=== PATIENT | male | born 1975 | race Two or more races ===

== ENCOUNTER → 2017-07-18 09:38 | Outpatient (CLI) | payer MEDICARE, SELFPAY ==
[2017-07-18 10:22] LABS: Basophils # 0.1 K/mm3 (0-0.2); Basophils % 0.6 % (0.1-2.0); Eosinophils # 0.2 K/mm3 (0.0-0.4); Eosinophils % 1.2 % (0.1-12.0); Hematocrit 44.8 % (42.0-52.0); Hemoglobin 14.4 g/dL (14.1-18.0); Lymphocytes # 2.1 K/mm3 (0.7-4.5); Lymphocytes % 16.9 K/mm3 (10-50); Mean Corpuscular HGB Conc 32.3 g/dL (31.8-35.4); Mean Corpuscular Hemoglobin 32.2 pg (27.0-31.2); Mean Corpuscular Volume 99.9 fl (80-94); Mean Platelet Volume 9.2 fl (7.4-10.4); Monocytes # 0.5 K/mm3 (0.1-1.0); Monocytes % 3.9 % (1.7-9.3); Neutrophils # 9.6 K/mm3 (1.8-7.8); Neutrophils % 77.4 % (37.0-80.0); Platelet Count 205 K/mm3 (142-424); Red Blood Count 4.48 M/mm3 (4.60-6.20); Red Cell Distribution Width 12.4 % (11.5-17.5); White Blood Count 12.4 K/mm3 (4.8-10.8)
[2017-07-18 10:39] LABS: Alanine Aminotransferase 54 U/L (12-78); Albumin Level 3.5 gm/dL (3.4-5.0); Albumin/Globulin Ratio 0.6 (1.1-1.8); Alkaline Phosphatase 197 U/L (46-116); Bilirubin,Total 0.4 mg/dL (0.2-1.0); Blood Urea Nitrogen 17 mg/dL (7-18); Carbon Dioxide 28 mmol/L (21.0-32.0); Chloride 93 mmol/L (98-107); Creatinine,Serum 1.59 mg/dL (0.70-1.30); Estimated Glomerular Filt Rate 48 ml/min (>60); Free Thyroxine Index 3.2 ug/dL (5.93-13.13); GFR (African American) 58 ML/MIN (>60); Globulin 5.4 gm/dl (1.3-3.2); Sodium 129 mmol/L (136-145); T4 (Thyroxine) 9.5 ug/dl (4.7-13.3); Thyroid Stimulating Hormone 1.82 uIU/ml (0.358-3.740); Total Protein,Serum 8.9 gm/dL (6.4-8.2); Triiodothryronine (T3) Uptake 34 % (31-39)
[2017-07-18 11:08] LABS: Glucose 581 mg/dL (74-106)
[2017-07-18 11:09] LABS: Aspartate Amino Transferase 25 U/L (15-37)
[2017-07-20 15:53] LABS: Testosterone,Total 123 ng/dL (264-916); Vitamin B12 661 pg/mL (232-1245); Vitamin D 25 Hydroxy 10.1 ng/mL (30.0-100.0)
== END ==
PROVIDERS: Visit Provider Internal Medicine Adolescent Medicine
DX: J44.9 Chronic obstructive pulmonary disease, unspecified (principal); R53.83 Other fatigue
CPT/HCPCS: 36415; 80053; 82607; 82652; 84403; 84436; 84443; 84479; 85025

== ENCOUNTER → 2017-08-17 10:15 | Outpatient (CLI) | payer MEDICARE, SELFPAY ==
--- NOTE | 2017-08-17 10:17 | XR_ITS ---
XR foot wt bearing LT 3V HISTORY: ITS.REASON: diabetic foot ulcer ORDERING PHYSICIAN: Elaine Mcbride DPM PATIENT AGE: 41 years FINDINGS: No fracture or dislocation. No lytic or blastic change. There is normal mineralization.. The joint spaces are well-preserved. No significant degenerative/arthritic changes. No erosive changes evident. IMPRESSION: Negative, no acute finding
--- NOTE | 2017-08-17 10:17 | XR_ITS ---
XR foot wt bearing RT 3V HISTORY: Diabetic foot ulcer on the plantar aspect of the heel ITS.REASON: diabetic foot ulcer ORDERING PHYSICIAN: Elaine Mcbride DPM PATIENT AGE: 41 years COMPARISON: 09/28/2012 FINDINGS: There is an old fracture of the distal phalanx of great toe. No lytic process apparent. No soft tissue gas or radiopaque foreign body. There is longitudinal calcification along the dorsal distal aspect tibia and could be due to an old fracture. IMPRESSION: No acute finding. No definite evidence of acute osteomyelitis
== END ==
PROVIDERS: PCP Nurse Practitioner Family; Visit Provider Podiatrist
DX: E11.621 Type 2 diabetes mellitus with foot ulcer (principal); L97.509 Non-pressure chronic ulcer of other part of unspecified foot with unspecified severity
CPT/HCPCS: 73630

== ENCOUNTER → 2017-08-18 09:19 | Outpatient (CLI) | payer MEDICARE, SELFPAY ==
[2017-08-18 10:20] LABS: Basophils % 0.5 % (0.1-2.0); Eosinophils # 0.3 K/mm3 (0.0-0.4); Eosinophils % 3.6 % (0.1-12.0); Hematocrit 36.2 % (42.0-52.0); Hemoglobin 11.3 g/dL (14.1-18.0); Lymphocytes # 1.9 K/mm3 (0.7-4.5); Lymphocytes % 23.6 K/mm3 (10-50); Mean Corpuscular HGB Conc 31.3 g/dL (31.8-35.4); Mean Corpuscular Volume 99.2 fl (80-94); Mean Platelet Volume 7.8 fl (7.4-10.4); Monocytes # 0.5 K/mm3 (0.1-1.0); Monocytes % 5.5 % (1.7-9.3); Neutrophils # 5.4 K/mm3 (1.8-7.8); Neutrophils % 66.8 % (37.0-80.0); Platelet Count 216 K/mm3 (142-424); Red Blood Count 3.65 M/mm3 (4.60-6.20); Red Cell Distribution Width 14.1 % (11.5-17.5); White Blood Count 8.1 K/mm3 (4.8-10.8)
[2017-08-18 11:40] LABS: Hemoglobin A1C 9.9 % (0.0-7.0)
[2017-08-18 12:19] LABS: Alanine Aminotransferase 64 U/L (12-78); Albumin Level 2.9 gm/dL (3.4-5.0); Albumin/Globulin Ratio 0.7 (1.1-1.8); Alkaline Phosphatase 127 U/L (46-116); Anion Gap 15.9 mEq/L (5-15); Bilirubin,Total 0.2 mg/dL (0.2-1.0); Blood Urea Nitrogen 6 mg/dL (7-18); Calcium 9.2 mg/dL (8.5-10.1); Carbon Dioxide 23 mmol/L (21.0-32.0); Chloride 108 mmol/L (98-107); Chol/HDL Ratio 5.5 (1-3.5); Cholesterol 199 mg/dL (140-200); Creatinine,Serum 1.02 mg/dL (0.70-1.30); Estimated Glomerular Filt Rate 80 ml/min (>60); GFR (African American) 96 ML/MIN (>60); Globulin 4.1 gm/dl (1.3-3.2); Glucose 113 mg/dL (74-106); HDL Cholesterol 36 mg/dL (27-67); LDL Cholesterol 123 mg/dL (0-130); Sodium 143 mmol/L (136-145); T4 (Thyroxine) 7.1 ug/dl (4.7-13.3); Thyroid Stimulating Hormone 0.72 uIU/ml (0.358-3.740); Triglycerides 200 mg/dL (30-200); VLDL Cholesterol 40 mg/dL (0-40)
[2017-08-18 12:24] LABS: Aspartate Amino Transferase 43 U/L (15-37); Potassium 3.9 mmoL/L (3.5-5.1)
[2017-08-20 06:29] LABS: Microalbumin, Urine 3.6 ug/mL (Not Estab.); Vitamin D 25 Hydroxy 11.7 ng/mL (30.0-100.0)
== END ==
PROVIDERS: Visit Provider Nurse Practitioner Family
DX: L89.610 Pressure ulcer of right heel, unstageable (principal); E11.9 Type 2 diabetes mellitus without complications; R53.1 Weakness; R53.83 Other fatigue
CPT/HCPCS: 36415; 80053; 80061; 82043; 82652; 83036; 84436; 84443; 85025

== ENCOUNTER → 2017-08-29 11:41 | Outpatient (REF) | payer MEDICARE, SELFPAY ==
[2017-08-29 18:24] LABS: Amphetamine/Metha Screen,Urine Negative ng/mL (<1000); Barbiturates Screen,Urine Negative ng/mL (<200); Benzodiazepines Screen,Urine Negative ng/mL (200); Cannabinoid Screen,Urine Positive ng/mL (<50); Cocaine Screen,Urine Negative ng/g (<300); Methadone Screen,Urine Negative ng/mL (<300); Opiate Screen,Urine Negative ng/mL (<300); Phencyclidine Screen,Urine Negative ng/mL (<25)
== END ==
LOC: LAB 11:41
PROVIDERS: Visit Provider Nurse Practitioner Family
DX: R41.82 Altered mental status, unspecified (principal)
CPT/HCPCS: 80305; 87070; 87077; 87186; 87205

== ENCOUNTER → 2017-08-29 15:13 | Outpatient (CLI) | payer MEDICARE, SELFPAY ==
--- NOTE | 2017-08-29 15:15 | US_ITS ---
US Arterial Ankle Brachial Ind History: ITS.REASON: Skin Changes , leg pain, claudication with rest pain, bilateral heel ulcers ORDERING PHYSICIAN: Elaine Mcbride DPM PATIENT AGE: 41 years TECHNIQUE: Segmental pressures obtained of both right and left leg. These are compared to brachial blood pressure to yield index at each level sampled including summary BLAKE. The data sheets from the procedure are available in PACS FINDINGS Rest study only performed today No prior studies available for comparison. Blood pressures reported are in millimeters mercury. RIGHT LEG BLAKE = 1.1. RIGHT LEG TBI=1.4 Brachial BP: 113 Thigh BP: 127 Calf BP: 134 Ankle PT: 133 Ankle DP : 121 Digit =173 LEFT LEG BLAKE = 1.1 LEFT LEG TBI= 0.9 Brachial BPD: 121 Thigh BP: 122 Calf BP: 129 Ankle PT:130 Ankle DP: 128 Digit = 110 Pulses and waveforms: Normal IMPRESSION: The ABIs and TBI's as reported above are within normal limits. Waveforms and pulses are also unremarkable.
== END ==
PROVIDERS: Family Provider Internal Medicine Adolescent Medicine; PCP Nurse Practitioner Family; Visit Provider Podiatrist
DX: R23.9 Unspecified skin changes (principal); R09.89 Other specified symptoms and signs involving the circulatory and respiratory systems; R41.82 Altered mental status, unspecified; H53.8 Other visual disturbances
CPT/HCPCS: 80305; 87070; 87077; 87186; 87205; 93922

== ENCOUNTER → 2017-09-06 15:32 | Outpatient (REF) | payer MEDICARE, SELFPAY ==
[2017-09-06 18:45] LABS: Amphetamine/Metha Screen,Urine Negative ng/mL (<1000); Barbiturates Screen,Urine Negative ng/mL (<200); Benzodiazepines Screen,Urine Negative ng/mL (200); Cannabinoid Screen,Urine Positive ng/mL (<50); Cocaine Screen,Urine Negative ng/g (<300); Methadone Screen,Urine Negative ng/mL (<300); Opiate Screen,Urine Negative ng/mL (<300); Phencyclidine Screen,Urine Negative ng/mL (<25)
== END ==
LOC: LAB 15:32
PROVIDERS: Visit Provider Nurse Practitioner Family
DX: R41.82 Altered mental status, unspecified (principal)
CPT/HCPCS: 80305

== ENCOUNTER → 2017-09-11 14:09 | Outpatient (CLI) | payer MEDICARE, SELFPAY ==
--- NOTE | 2017-09-11 14:10 | CT_ITS ---
CT head/brain wo con HISTORY: Headaches with blurred vision ITS.REASON: blurry vison ORDERING PHYSICIAN: Cash Gerber MD PATIENT AGE: 41 years COMPARISON: 07/24/2017 TECHNIQUE: Axial images obtained without contrast. Brain and bone windows reviewed. All CT scans at the facility use one or more dose reduction, viz: automated exposure control; ma/kV adjustment per patient size (including targeted exams where dose is matched to indication; i.e. head); or iterative reconstruction technique. FINDINGS: No midline shift, mass effect, intracranial hemorrhage, hydrocephalus, or extra-axial fluid collection is evident. The calvarium has an unremarkable appearance. There is opacification in the right mastoid sinus and right middle ear. There is an air-fluid level in right mastoid sinus Consider mastoid/temporal bone CT for further evaluation. IMPRESSION: 1. No acute intracranial findings. 2. Opacification of the right mastoid sinus with an air-fluid level and right middle ear opacification consistent with inflammatory changes. Dedicated CT of the mastoids/temporal bone may be of further value to exclude cholesteatoma development.
== END ==
PROVIDERS: Family Provider Internal Medicine Adolescent Medicine; PCP Nurse Practitioner Family; Visit Provider Emergency Medicine
DX: H53.8 Other visual disturbances (principal)
CPT/HCPCS: 70450

== ENCOUNTER → 2017-09-29 09:59 | Outpatient (POV) | payer MEDICARE, SELFPAY | PROVIDERS: Family Provider Internal Medicine Adolescent Medicine; PCP Nurse Practitioner Family; Visit Provider Podiatrist | DX: Z00.00 Encounter for general adult medical examination without abnormal findings (principal) ==

== ENCOUNTER → 2017-10-30 09:03 | Outpatient (POV) | payer MEDICARE, SELFPAY | PROVIDERS: Family Provider Internal Medicine Adolescent Medicine; PCP Nurse Practitioner Family; Visit Provider Specialist | DX: R20.0 Anesthesia of skin (principal); R20.2 Paresthesia of skin ==

== ENCOUNTER → 2017-11-02 14:13 | Outpatient (CLI) | payer MEDICARE, SELFPAY ==
--- NOTE | 2017-11-02 14:16 | CT_ITS ---
CT mastoid W/O Ordering Physician: Cristian Baeza MD Patient Age: 41 years: Male HISTORY: ITS.REASON: radiology recommendation re: abnm previous scan HISTORY of headaches TECHNIQUE: Axial CT scanning performed through the middle air with sagittal and coronal reconstructions. COMPARISON :CT head 09/11/2017. FINDINGS IACs appear symmetrical. Within normal limits. CP angles clear. Left mastoid air cells are well-developed and clear. Right mastoid.. Complete Opacification of the right mastoid air cells fluid-filled mastoid antrum. Fluid extending to the middle air. Diffuse fluid-filled middle ear.. There is fluid and density throughout the right middle year which now completely surrounding the ossicles.Fluid/opacification extending towards the eustachian tube as well On prior September [address] there is some scant air at the middle ear but it is less evident today..., .. Generous jugular foramen on right with the bone otherwise seems to be intact.. It seems that the Ossicles detailed less then optimal with current technique... Left mastoid air cells well-developed and clear. The left middle ear clear. Old medial displaced fracture lamina papyracea/medial wall left orbit . Mild mucosal thickening at ethmoid air cells. 4.5 mm x 5 mm small osteoma right frontal sinus at its junction with ethmoid air cells Moderate engorgement nasal turbinates. Deviation nasal septum convex to left with 3 mm septal spur to the left Cervical spondylosis degenerative disc changes C4/5. Diffuse posterior endplate osteophytes indenting anterior thecal sac at this level. The foraminal encroachment right greater than left. IMPRESSION: -------- 1. 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 Complete opacification right mastoid air cells with with confluence opacification extending to and filling middle ear. Other observations: 2. Old fracture medial wall left orbit 3. Incidental. 5 mm osteoma right frontal sinus at junction with ethmoid air cells.... Scant mucosal thickening anterior ethmoid air cells. 4. Deviation nasal septum with septal spur the left. & Engorgement nasal turbinates. 5.. Degenerative disc narrowing & Cervical spondylosis C4/5 noted in view of headaches. With Bilateral foraminal encroachment. Mild spinal stenosis.
== END ==
PROVIDERS: Family Provider Internal Medicine Adolescent Medicine; PCP Nurse Practitioner Family; Visit Provider Otolaryngology
DX: R51 Headache (principal); H65.91 Unspecified nonsuppurative otitis media, right ear; H70.11 Chronic mastoiditis, right ear; Z86.39 Personal history of other endocrine, nutritional and metabolic disease
CPT/HCPCS: 70486

== ENCOUNTER → 2017-11-23 13:25 | Outpatient (REF) | payer MEDICARE, SELFPAY ==
[2017-11-23 20:44] LABS: Amphetamine/Metha Screen,Urine Negative ng/mL (<1000); Barbiturates Screen,Urine Negative ng/mL (<200); Benzodiazepines Screen,Urine Negative ng/mL (<200); Cannabinoid Screen,Urine Positive ng/mL (<50); Cocaine Screen,Urine Negative ng/mL (<300); Methadone Screen,Urine Negative ng/mL (<300); Opiate Screen,Urine Negative ng/mL (<300); Phencyclidine Screen,Urine Negative ng/mL (<25)
== END ==
LOC: LAB 13:25
PROVIDERS: Visit Provider Nurse Practitioner Family
DX: Z79.899 Other long term (current) drug therapy (principal)
CPT/HCPCS: 80305

== ENCOUNTER → 2018-03-10 12:23 | Outpatient (CLI) | payer MEDICARE, SELFPAY ==
[2018-03-10 13:34] LABS: Basophils # 0.1 K/mm3 (0-0.2); Basophils % 0.7 % (0.1-2.0); Eosinophils # 0.2 K/mm3 (0.0-0.4); Eosinophils % 2.4 % (0.1-12.0); Hemoglobin 14.9 g/dL (14.1-18.0); Lymphocytes # 2.4 K/mm3 (0.7-4.5); Lymphocytes % 24.3 % (10-50); Mean Corpuscular HGB Conc 33.1 g/dL (31.8-35.4); Mean Corpuscular Hemoglobin 30.5 pg (27.0-31.2); Mean Corpuscular Volume 92.2 fl (80-94); Mean Platelet Volume 8.1 fl (7.4-10.4); Monocytes # 0.5 K/mm3 (0.1-1.0); Monocytes % 4.7 % (1.7-9.3); Neutrophils # 6.6 K/mm3 (1.8-7.8); Platelet Count 174 K/mm3 (142-424); Red Blood Count 4.88 M/mm3 (4.60-6.20); Red Cell Distribution Width 14.3 % (11.5-17.5); White Blood Count 9.7 K/mm3 (4.8-10.8)
[2018-03-10 14:19] LABS: Alanine Aminotransferase 29 U/L (12-78); Albumin Level 3.4 gm/dL (3.4-5.0); Albumin/Globulin Ratio 0.8 (1.1-1.8); Alkaline Phosphatase 129 U/L (46-116); Anion Gap 14.8 mEq/L (5-15); Bilirubin,Total 0.2 mg/dL (0.2-1.0); Blood Urea Nitrogen 14 mg/dL (7-18); Carbon Dioxide 25 mmol/L (21.0-32.0); Chloride 107 mmol/L (98-107); Chol/HDL Ratio 4.8 (1-3.5); Cholesterol 159 mg/dL (140-200); Creatinine,Serum 1.25 mg/dL (0.70-1.30); Estimated Glomerular Filt Rate 63 ml/min (>60); GFR (African American) 76 ML/MIN (>60); Globulin 4.3 gm/dl (1.3-3.2); Glucose 99 mg/dL (74-106); HDL Cholesterol 33 mg/dL (27-67); LDL Cholesterol 63 mg/dL (0-130); Sodium 142 mmol/L (136-145); T4 (Thyroxine) 6.6 ug/dl (4.7-13.3); Thyroid Stimulating Hormone 0.62 uIU/ml (0.358-3.740); Total Protein,Serum 7.7 gm/dL (6.4-8.2); Triglycerides 314 mg/dL (30-200); VLDL Cholesterol 63 mg/dL (0-40)
[2018-03-10 14:27] LABS: Aspartate Amino Transferase 19 U/L (15-37); Potassium 4.8 mmoL/L (3.5-5.1)
[2018-03-12 10:35] LABS: Vitamin D 25 Hydroxy 15.9 ng/mL (30.0-100.0)
[2018-03-14 06:26] LABS: Microalbumin, Urine <3.0 ug/mL (Not Estab.)
== END ==
PROVIDERS: Visit Provider Nurse Practitioner Family
DX: R41.82 Altered mental status, unspecified (principal); G62.9 Polyneuropathy, unspecified; E11.9 Type 2 diabetes mellitus without complications
CPT/HCPCS: 36415; 80053; 80061; 82043; 82652; 83036; 84436; 84443; 85025

== ENCOUNTER → 2018-07-30 12:10 | Outpatient (CLI) | payer MEDICARE, SELFPAY ==
--- NOTE | 2018-07-30 12:17 | XR_ITS ---
XR foot wt bearing LT 3V HISTORY: ITS.REASON: pain ORDERING PHYSICIAN: Elaine Mcbride DPM PATIENT AGE: 42 years COMPARISON: None FINDINGS: No fracture or dislocation. No lytic or blastic change. There is normal mineralization.. The joint spaces are well-preserved. No significant degenerative/arthritic changes. No erosive changes evident. IMPRESSION: Negative, no acute finding
--- NOTE | 2018-07-30 12:17 | XR_ITS ---
XR foot wt bearing RT 3V HISTORY: ITS.REASON: pain ORDERING PHYSICIAN: Elaine Mcbride DPM PATIENT AGE: 42 years COMPARISON: None FINDINGS: No fracture or dislocation. No lytic or blastic change. There is normal mineralization.. The joint spaces are well-preserved. No significant degenerative/arthritic changes. No erosive changes evident. Minimal exostosis noted along the dorsal and distal aspect of the tibia with mild spurring along the anterior and distal aspect of the tibia. IMPRESSION: Mild degenerative changes of the ankle, unremarkable foot
== END ==
PROVIDERS: PCP Nurse Practitioner Family; Visit Provider Podiatrist
DX: M79.671 Pain in right foot (principal); M79.672 Pain in left foot
CPT/HCPCS: 73630

== ENCOUNTER → 2018-08-30 13:31 | Outpatient (CLI) | payer MEDICARE, SELFPAY ==
[2018-08-30 14:37] LABS: Basophils # 0.1 K/mm3 (0-0.2); Basophils % 0.7 % (0.1-2.0); Eosinophils # 0.2 K/mm3 (0.0-0.4); Hematocrit 49.7 % (42.0-52.0); Lymphocytes # 2.4 K/mm3 (0.7-4.5); Mean Corpuscular HGB Conc 34.2 g/dL (31.8-35.4); Mean Corpuscular Hemoglobin 31.1 pg (27.0-31.2); Mean Corpuscular Volume 91.2 fl (80-94); Mean Platelet Volume 9.9 fl (7.4-10.4); Monocytes # 0.5 K/mm3 (0.1-1.0); Monocytes % 4.1 % (1.7-9.3); Neutrophils # 7.7 K/mm3 (1.8-7.8); Neutrophils % 71.1 % (37.0-80.0); Platelet Count 182 K/mm3 (142-424); Red Blood Count 5.46 M/mm3 (4.60-6.20); Red Cell Distribution Width 13.6 % (11.5-17.5); White Blood Count 10.9 K/mm3 (4.8-10.8)
[2018-08-30 16:58] LABS: Alanine Aminotransferase 40 U/L (12-78); Albumin Level 4.1 gm/dL (3.4-5.0); Albumin/Globulin Ratio 1.1 (1.1-1.8); Alkaline Phosphatase 169 U/L (46-116); Anion Gap 18.9 mEq/L (5-15); Aspartate Amino Transferase 21 U/L (15-37); Bilirubin,Total 0.5 mg/dL (0.2-1.0); Blood Urea Nitrogen 16 mg/dL (7-18); Calcium 9.3 mg/dL (8.5-10.1); Carbon Dioxide 22 mmol/L (21.0-32.0); Chloride 106 mmol/L (98-107); Chol/HDL Ratio 4.4 (1-3.5); Cholesterol 155 mg/dL (140-200); Creatinine,Serum 1.25 mg/dL (0.70-1.30); Estimated Glomerular Filt Rate 63 ml/min (>60); Free Thyroxine Index 2.6 ug/dL (5.93-13.13); GFR (African American) 76 ML/MIN (>60); Globulin 3.7 gm/dl (1.3-3.2); Glucose 106 mg/dL (74-106); HDL Cholesterol 35 mg/dL (27-67); LDL Cholesterol 80 mg/dL (0-130); Phosphorous 3.1 mg/dL (2.4-4.9); Potassium 4.9 mmoL/L (3.5-5.1); Sodium 142 mmol/L (136-145); T4 (Thyroxine) 8.7 ug/dl (4.7-13.3); Thyroid Stimulating Hormone 1.39 uIU/ml (0.358-3.740); Total Protein,Serum 7.8 gm/dL (6.4-8.2); Triglycerides 200 mg/dL (30-200); Triiodothryronine (T3) Uptake 30 % (31-39); VLDL Cholesterol 40 mg/dL (0-40)
[2018-08-30 18:09] LABS: Amphetamine/Metha Screen,Urine Negative ng/mL (<1000); Barbiturates Screen,Urine Negative ng/mL (<200); Benzodiazepines Screen,Urine Negative ng/mL (<200); Cannabinoid Screen,Urine Positive ng/mL (<50); Cocaine Screen,Urine Negative ng/mL (<300); Methadone Screen,Urine Negative ng/mL (<300); Opiate Screen,Urine Negative ng/mL (<300); Phencyclidine Screen,Urine Negative ng/mL (<25)
[2018-09-02 17:22] LABS: Thyroid Peroxidase Antibodies 13 IU/mL (0-34); Vitamin D 25 Hydroxy 32.8 ng/mL (30.0-100.0)
[2018-09-02 17:23] LABS: Microalbumin, Urine 29.8 ug/mL (Not Estab.)
== END ==
PROVIDERS: Visit Provider Nurse Practitioner Family
DX: E11.9 Type 2 diabetes mellitus without complications (principal); R10.9 Unspecified abdominal pain; R11.0 Nausea; R53.83 Other fatigue; E78.5 Hyperlipidemia, unspecified; R68.89 Other general symptoms and signs; E66.9 Obesity, unspecified; Z79.899 Other long term (current) drug therapy; Z79.4 Long term (current) use of insulin
CPT/HCPCS: 80053; 80061; 80069; 80305; 82043; 82652; 83036; 84436; 84443; 84479; 85025; 86376

== ENCOUNTER → 2018-12-12 17:46 | Outpatient (CLI) | payer MEDICARE, SELFPAY ==
[2018-12-12 20:00] LABS: Amphetamine/Metha Screen,Urine Negative ng/mL (<1000); Barbiturates Screen,Urine Negative ng/mL (<200); Benzodiazepines Screen,Urine Negative ng/mL (<200); Cannabinoid Screen,Urine Positive ng/mL (<50); Cocaine Screen,Urine Negative ng/mL (<300); Methadone Screen,Urine Negative ng/mL (<300); Opiate Screen,Urine Negative ng/mL (<300); Phencyclidine Screen,Urine Negative ng/mL (<25)
== END ==
PROVIDERS: Visit Provider Nurse Practitioner Family
DX: R41.82 Altered mental status, unspecified (principal)
CPT/HCPCS: 80305

== ENCOUNTER → 2019-03-14 13:13 | Outpatient (CLI) | payer MEDICARE, SELFPAY ==
[2019-03-14 14:17] LABS: Hematocrit 48.6 % (42.0-52.0); Hemoglobin 16.2 g/dL (14.1-18.0); Mean Corpuscular HGB Conc 33.2 g/dL (31.8-35.4); Mean Corpuscular Hemoglobin 31.9 pg (27.0-31.2); Mean Corpuscular Volume 95.9 fl (80-94); Red Blood Count 5.07 M/mm3 (4.60-6.20); White Blood Count 10.5 K/mm3 (4.8-10.8)
[2019-03-14 14:18] LABS: Basophils # 0.1 K/mm3 (0-0.2); Basophils % 0.7 % (0.1-2.0); Eosinophils # 0.4 K/mm3 (0.0-0.4); Eosinophils % 3.5 % (0.1-12.0); Lymphocytes # 2.3 K/mm3 (0.7-4.5); Mean Platelet Volume 9.3 fl (7.4-10.4); Monocytes # 0.5 K/mm3 (0.1-1.0); Monocytes % 4.4 % (1.7-9.3); Neutrophils # 7.3 K/mm3 (1.8-7.8); Neutrophils % 69.5 % (37.0-80.0); Platelet Count 181 K/mm3 (142-424); Red Cell Distribution Width 13.1 % (11.5-17.5)
[2019-03-14 16:07] LABS: Alanine Aminotransferase 30 U/L (12-78); Albumin Level 3.6 gm/dL (3.4-5.0); Albumin/Globulin Ratio 0.9 (1.1-1.8); Alkaline Phosphatase 136 U/L (46-116); Anion Gap 18.1 mEq/L (5-15); Aspartate Amino Transferase 22 U/L (15-37); Bilirubin,Total 0.3 mg/dL (0.2-1.0); Blood Urea Nitrogen 11 mg/dL (7-18); Calcium 8.9 mg/dL (8.5-10.1); Carbon Dioxide 22 mmol/L (21.0-32.0); Chloride 105 mmol/L (98-107); Chol/HDL Ratio 3.6 (1-3.5); Cholesterol 118 mg/dL (140-200); Creatinine,Serum 1.01 mg/dL (0.70-1.30); Estimated Glomerular Filt Rate 80 ml/min (>60); GFR (African American) 97 ML/MIN (>60); Globulin 3.8 gm/dl (1.3-3.2); Glucose 117 mg/dL (74-106); HDL Cholesterol 33 mg/dL (27-67); LDL Cholesterol 57 mg/dL (0-130); Potassium 4.1 mmoL/L (3.5-5.1); Sodium 141 mmol/L (136-145); T4 (Thyroxine) 10.7 ug/dl (4.7-13.3); Thyroid Stimulating Hormone 0.59 uIU/ml (0.358-3.740); Total Protein,Serum 7.4 gm/dL (6.4-8.2); Triglycerides 140 mg/dL (30-200); VLDL Cholesterol 28 mg/dL (0-40)
[2019-03-14 19:10] LABS: Hemoglobin A1C 6.2 % (0.0-7.0)
[2019-03-15 10:48] LABS: Vitamin D 25 Hydroxy 48.8 ng/mL (30.0-100.0)
[2019-03-15 10:49] LABS: Microalbumin, Urine 91.1 ug/mL (Not Estab.)
== END ==
PROVIDERS: Visit Provider Nurse Practitioner Family
DX: E11.9 Type 2 diabetes mellitus without complications (principal); G62.9 Polyneuropathy, unspecified; Z79.4 Long term (current) use of insulin
CPT/HCPCS: 36415; 80053; 80061; 82043; 82652; 83036; 84436; 84443; 85025

== ENCOUNTER 2021-06-22 10:20 | Emergency (ER) | payer MEDICARE, SELFPAY ==
[2021-06-22 11:30] VITALS: BP 146/90; PULSE 68; RESP 18; TEMP 37; O2SAT 98; BMI 25.1
--- NOTE | 2021-06-22 11:44 | HMH.EDUTC ---
[facility] [place]Isaiah Blackmon - Last Filed: 06/22/21 11:53> Condition on Discharge: Good <Jaciel Mccloud - Last Filed: 06/22/21 17:05> Clinical Impression: Gastroenteritis Disposition: Home, Self-Care Instructions: DI for Acute Abdominal Pain, Viral Gastroenteritis Prescriptions: Dicyclomine HCl [Bentyl 10mg capsule] 10 mg PO TID PRN #15 cap PRN Reason: Cramping Transmission Status: Pending to [id number] Ondansetron [Zofran 4mg ODT] 4 mg PO TIDP PRN #12 tab PRN Reason: Nausea And Vomiting Transmission Status: Pending to [facility] Referrals: Provider,Referral, MD [Primary Care Provider] - Medical Decision Making - Medical Records Medical records reviewed: No: I reviewed the patient's medical records. - Donell Inquiry Pt receiving controlled substance: No - Lab Data Lab results reviewed: Yes: I reviewed the patient's lab results. <Isaiah Blackmon - Last Filed: 06/22/21 11:53> - Medical Records Medical records reviewed: Yes: I reviewed the patient's medical records. - Donell Inquiry Pt receiving controlled substance: No - Lab Data Result diagrams: 06/22/21 12:20 06/22/21 12:20 <Jaciel Mccloud - Last Filed: 06/22/21 17:05> Vital Signs: 06/22/21 11:30 06/22/21 13:32 Temperature 98.6 F 98.0 F Temperature Source Oral Oral Pulse Rate [Left] 68 63 Respiratory Rate 18 18 Blood Pressure [Right Arm] 146/90 H 132/91 H Blood Pressure Mean [Right Arm] 108 104 02 Sat by Pulse Oximetry 98 96 Oxygen Delivery Method Room Air - Lab Data Lab Results 06/22/21 11:54: Influenza Type A Ag Negative, Influenza Type B Ag Negative 06/22/21 11:54: Strep Scn [facility] Negative 06/22/21 12:20: WBC 9.8, RBC 5.23, Hgb 17.5, Hct 52.7 H, MCV 100.6 H, MCH 33.4 H, MCHC 33.2, RDW 13.3, Plt Count 180, MPV 9.1, Neut % (Auto) 66.3, Lymph % (Auto) 22.5, Knott % (Auto) 7.3, Eos % (Auto) 2.1, Baso % (Auto) 1.8, Neut # (Auto) 6.5, Lymph # (Auto) 2.2, Knott # (Auto) 0.7, Eos # (Auto) 0.2, Baso # (Auto) 0.2 06/22/21 12:20: Sodium 140, Potassium 4.0, Chloride 107, Carbon Dioxide 26, Anion Gap 11.0, BUN 13, Creatinine 0.90, Estimated Creat Clear 117, Estimated GFR 90, Est GFR ( Amer) 109, Glucose 100, Calcium 9.5, Total Bilirubin 0.7, AST 30, ALT 26, Alkaline Phosphatase 95, Total Protein 8.1, Albumin 4.6, Globulin 3.5 H, Albumin/Globulin Ratio 1.3, Amylase 71, Lipase 155 06/22/21 12:20: Acetone Level None detected 06/22/21 13:20: Urine Color Yellow, Urine Appearance Clear, Urine pH 7.0, Ur Specific [place] 1.015, Urine Protein Negative, Urine Glucose (UA) Negative, Urine Ketones Negative, Urine Blood Negative, Urine Nitrate Negative, Urine Bilirubin Negative, Urine Urobilinogen 0.2, Ur Leukocyte Esterase Negative, Urine RBC None, Urine WBC Occasional, Ur Squamous Epith Cells Occasional, Urine Bacteria None Orders (Tests/Meds): ED MEDICATIONS Generic Name Dose Route Start Last Admin Trade Name Freq PRN Reason Stop Dose Admin Sodium Chloride 1,000 mls @ 999 mls/hr 06/22/21 14:49 06/22/21 14:50 Sod Chlor 0.9% 1000ml Bag IV 06/22/21 15:49 999 mls/hr .Q1H1M KWAN Administration Sodium Chloride 10 ml 06/22/21 14:53 Sodium Chloride 0.9% 10ml Flush Syringe IV 07/22/21 14:52 NEEDED PRN Maintain IV Site Discontinued Medications Generic Name Dose Route Start Last Admin Trade Name Freq PRN Reason Stop Dose Admin Iopamidol 75 ml 06/22/21 15:52 06/22/21 15:52 Iopamidol-370 (76%);100ml Bottle IV 06/22/21 15:53 75 ml ONCE ONE Administration Ketorolac Tromethamine 30 mg 06/22/21 14:49 06/22/21 14:50 Ketorolac 30mg/Ml Vial IV 06/22/21 14:50 30 mg ONCE ONE Administration Ondansetron HCl 4 mg 06/22/21 11:34 06/22/21 11:36 Ondansetron 4mg Odt SL 06/22/21 11:35 4 mg ONCE ONE Administration Ondansetron HCl 4 mg 06/22/21 14:49 06/22/21 14:50 Ondansetron 4mg/2ml Vial IV 06/22/21 14:50 4 mg ONCE ONE Administration Sodium Chlor
[2021-06-22 12:16] LABS: UTC Strep Screen (Rapid) Negative (Negative)
[2021-06-22 12:17] LABS: UTC Influenza A Antigen Negative (Negative); UTC Influenza B Antigen Negative (Negative)
[2021-06-22 12:37] LABS: Basophils # 0.2 K/mm3 (0-0.2); Basophils % 1.8 % (0.1-2.0); Eosinophils # 0.2 K/mm3 (0.0-0.4); Eosinophils % 2.1 % (0.1-12.0); Hematocrit 52.7 % (42.0-52.0); Hemoglobin 17.5 g/dL (14.1-18.0); Lymphocytes # 2.2 K/mm3 (0.7-4.5); Lymphocytes % 22.5 % (10-50); Mean Corpuscular HGB Conc 33.2 g/dL (31.8-35.4); Mean Corpuscular Hemoglobin 33.4 pg (27.0-31.2); Mean Corpuscular Volume 100.6 fl (80-94); Mean Platelet Volume 9.1 fl (7.4-10.4); Monocytes # 0.7 K/mm3 (0.1-1.0); Monocytes % 7.3 % (1.7-9.3); Neutrophils # 6.5 K/mm3 (1.8-7.8); Neutrophils % 66.3 % (37.0-80.0); Platelet Count 180 K/mm3 (142-424); Red Blood Count 5.23 M/mm3 (4.60-6.20); Red Cell Distribution Width 13.3 % (11.5-17.5); White Blood Count 9.8 K/mm3 (4.8-10.8)
[2021-06-22 12:41] LABS: Acetone, Serum (Rapid) None Detected (None Detect)
[2021-06-22 12:42] LABS: Alanine Aminotransferase 26 U/L (12-78); Albumin Level 4.6 g/dl (3.5-5.0); Albumin/Globulin Ratio 1.3 (1.1-1.8); Alkaline Phosphatase 95 U/L (38-126); Amylase 71 U/L (30-110); Aspartate Amino Transferase 30 U/L (17-59); Bilirubin,Total 0.7 mg/dl (0.2-1.3); Blood Urea Nitrogen 13 mg/dl (9-20); Calcium 9.5 mg/dl (8.4-10.2); Carbon Dioxide 26 mmol/L (22.0-30.0); Chloride 107 mmol/L (98-107); Creatinine Clearance Estimated 117 mL/min (50-200); Estimated Glomerular Filt Rate 90 ml/min (>60); GFR (African American) 109 ML/MIN (>60); Globulin 3.5 g/dL (1.3-3.2); Glucose 100 mg/dl (74-100); Lipase 155 U/L (23-300); Sodium 140 mmol/L (136-145); Total Protein,Serum 8.1 g/dl (6.3-8.2)
--- NOTE | 2021-06-22 12:59 | XR_ITS ---
FINAL REPORT CLINICAL HISTORY: CONGESTION..dizzness FINDINGS: Two views of the chest were obtained. The heart size and pulmonary vascularity are within normal limits. The mediastinum is normal. No acute pulmonary abnormality is identified. There is no pneumothorax. The bony thorax is intact. IMPRESSION: No active cardiopulmonary disease. Reviewed, Interpreted and Dictated by Jose Luis Houser III, MD Transcribed by Sue Reynolds Authenticated by Jose Luis Houser III, MD on 06/22/2021 01:41:03 PM [facility]
[2021-06-22 13:32] VITALS: BP 132/91; PULSE 63; RESP 18; TEMP 36.7; O2SAT 96; BMI 25.2
--- NOTE | 2021-06-22 14:53 | CT_ITS ---
FINAL REPORT CLINICAL HISTORY: pain, n/v/d FINDINGS: Technique: The patient was injected with intravenous contrast. Axial images through the abdomen and pelvis were performed. This study was performed with techniques to keep radiation doses as low as reasonably achievable (ALARA). Individualized dose reduction techniques using automated exposure control or adjustment of mA and/or kV according to the patient's size were employed. Abdomen: The lung bases are clear. The liver is normal in size and attenuation. The gallbladder is present. The spleen is unremarkable. The adrenals are normal. The pancreas is unremarkable. The kidneys enhance appropriately. The aorta is normal in caliber. There is no free fluid or adenopathy. Pelvis: The appendix is normal. There are multiple fluid filled large and small bowel loops with a nonspecific appearance but may represent an enteritis. There are several diverticula in the sigmoid colon. The urinary bladder is unremarkable. There is no free fluid or adenopathy. IMPRESSION: Multiple fluid filled large and small bowel loops with a nonspecific appearance but may represent an enteritis. Reviewed, Interpreted and Dictated by Jose Luis Houser III, MD Transcribed by Almaz Maddox Authenticated by Jose Luis Houser III, MD on 06/22/2021 04:41:21 PM [facility]
--- NOTE | 2021-06-22 14:53 | CT_ITS ---
FINAL REPORT CLINICAL HISTORY: pain, dizziness COMPARISON: May 09, 2018 FINDINGS: Axial images of the head were obtained without contrast. Coronal reformatted images were also obtained.This study was performed with techniques to keep radiation doses as low as reasonably achievable (ALARA). Individualized dose reduction techniques using automated exposure control or adjustment of mA and/or kV according to the patient's size were employed. There is no evidence of intracranial hemorrhage or mass. The ventricular size is within normal limits. There is no evidence of shift of the midline structures. No abnormal extra axial fluid collection is identified. No skull abnormality is seen on the bone window images. IMPRESSION: No acute intracranial abnormality. Reviewed, Interpreted and Dictated by Jose Luis Houser III, MD Transcribed by Almaz Maddox Authenticated by Jose Luis Houser III, MD on 06/22/2021 04:41:27 PM [facility]
[2021-06-22 14:55] LABS: Microscopic, Urine URINE MICROSCOPIC (MICROSCOPIC)
--- NOTE | 2021-06-22 15:17 | PC.NURSE ---
notified rad of Ct order, spoke with mandy
[2021-06-22 15:41] LABS: Appearance,Urine CLEAR (Clear); Bilirubin,Urine Negative (Negative); Blood, Urine Negative (Negative); Color,Urine YELLOW (Yellow); Glucose,Urine (UA) Negative (Negative); Ketones,Urine Negative (Negative); Leukocyte Esterase,Urine Negative (Negative); Nitrate,Urine Negative (Negative); Protein,Urine Negative (Negative); Specific Gravity, Urine 1.015 (1.005-1.030); Urobilinogen,Urine 0.2 EU/dl (0.2)
[2021-06-22 15:52] LABS: Squamous Epithelial Cell,Urine Occasional #/hpf (0-5)
[2021-06-22 15:53] LABS: WBC,Urine Occasional #/hpf (0-3)
[2021-06-22 17:14] VITALS: BP 114/76; PULSE 78; RESP 16; TEMP 37.1; O2SAT 98
== END 2021-06-22 17:15 | disposition home or self-care (01) ==
LOC: UTC 10:35 → ER 13:19
PROVIDERS: Emergency Medicine; Emergency Provider Nurse Practitioner Family
DX: K52.9 Noninfective gastroenteritis and colitis, unspecified (principal); B34.9 Viral infection, unspecified; E42 Marasmic kwashiorkor; E10.9 Type 1 diabetes mellitus without complications; R11.2 Nausea with vomiting, unspecified; R27.9 Unspecified lack of coordination; K21.9 Gastro-esophageal reflux disease without esophagitis; E78.5 Hyperlipidemia, unspecified; G62.9 Polyneuropathy, unspecified; J98.4 Other disorders of lung; G43.909 Migraine, unspecified, not intractable, without status migrainosus; F17.210 Nicotine dependence, cigarettes, uncomplicated; Z79.899 Other long term (current) drug therapy
CPT/HCPCS: 70450; 71046; 74177; 80053; 81001; 82009; 82150; 83690; 85025; 87804; 87880; 96365; 96374; 96375; 96376; 99285; J2405; Q9967

== ENCOUNTER → 2021-07-05 16:00 | Outpatient (CLI) | payer MEDICARE, SELFPAY ==
[2021-07-05 14:42] LABS: Basophils # 0.1 K/mm3 (0-0.2); Basophils % 0.7 % (0.1-2.0); Eosinophils # 0.2 K/mm3 (0.0-0.4); Eosinophils % 1.2 % (0.1-12.0); Hematocrit 48.5 % (42.0-52.0); Hemoglobin 16.3 g/dL (14.1-18.0); Lymphocytes # 2.6 K/mm3 (0.7-4.5); Lymphocytes % 18.6 % (10-50); Mean Corpuscular HGB Conc 33.7 g/dL (31.8-35.4); Mean Corpuscular Hemoglobin 33.5 pg (27.0-31.2); Mean Corpuscular Volume 99.3 fl (80-94); Mean Platelet Volume 9.9 fl (7.4-10.4); Monocytes # 0.6 K/mm3 (0.1-1.0); Neutrophils # 10.7 K/mm3 (1.8-7.8); Neutrophils % 75.5 % (37.0-80.0); Platelet Count 204 K/mm3 (142-424); Red Blood Count 4.88 M/mm3 (4.60-6.20); Red Cell Distribution Width 13.1 % (11.5-17.5); White Blood Count 14.1 K/mm3 (4.8-10.8)
[2021-07-05 15:08] LABS: Erythrocyte Sedimentation Rate 18 mm/hr (0-15)
[2021-07-05 16:19] LABS: 25-OH Vitamin D, Total 24.7 ng/mL (30-100)
[2021-07-05 16:22] LABS: Free T4 (Free Thyroxine) 1.19 ng/dl (0.78-2.19)
[2021-07-05 16:35] LABS: Alanine Aminotransferase 24 U/L (12-78); Albumin Level 4.3 g/dl (3.5-5.0); Albumin/Globulin Ratio 1.4 (1.1-1.8); Alkaline Phosphatase 84 U/L (38-126); Anion Gap 10.9 mEq/L (5-15); Aspartate Amino Transferase 31 U/L (17-59); Bilirubin,Total 0.7 mg/dl (0.2-1.3); Blood Urea Nitrogen 12 mg/dl (9-20); Calcium 9.6 mg/dl (8.4-10.2); Carbon Dioxide 23 mmol/L (22.0-30.0); Chloride 111 mmol/L (98-107); Chol/HDL Ratio 4.6 (1-3.5); Cholesterol 169 mg/dl (140-200); Estimated Glomerular Filt Rate 90 ml/min (>60); GFR (African American) 109 ML/MIN (>60); Glucose 100 mg/dl (74-100); HDL Cholesterol 37 mg/dl (40-60); Hemoglobin A1C 5.2 % (4.0-6.0); Potassium 3.9 mmoL/L (3.5-5.1); Sodium 141 mmol/L (136-145); Total Protein,Serum 7.3 g/dl (6.3-8.2); Triglycerides 115 mg/dl (30-150); VLDL Cholesterol 23 mg/dL (0-40)
[2021-07-05 16:46] LABS: Direct LDL Cholesterol 100.36 mg/dL (100-129)
[2021-07-05 17:23] LABS: Thyroid Stimulating Hormone 0.62 uIU/mL (0.465-4.68)
== END ==
PROVIDERS: Visit Provider Emergency Medicine
DX: E11.9 Type 2 diabetes mellitus without complications (principal); R53.83 Other fatigue; R51.9 Headache, unspecified; E03.9 Hypothyroidism, unspecified; E55.9 Vitamin D deficiency, unspecified
CPT/HCPCS: 80053; 80061; 82306; 83036; 84439; 84443; 85025; 85651

== ENCOUNTER 2021-12-29 09:50 | Emergency (ER) | payer MEDICARE, SELFPAY ==
[2021-12-29] VITALS (8 sets, daily range): BP systolic 112–144; BP diastolic 70–96; PULSE 64–72; RESP 16–19; TEMP 36.7–36.8; O2SAT 95–98; BMI 31.4
[2021-12-29 10:34] LABS: POC Glucose,Bedside 112 (70-110)
--- NOTE | 2021-12-29 10:41 | EXP.UTC ---
Discharge Plan Disposition Patient Disposition: Still a Patient Condition: Fair Prescriptions Prescriptions: No Action ergocalciferol (vitamin D2) 1,250 mcg (50,000 unit) capsule 50,000 unit PO QWEEK 90 Days Qty: 12 0RF cholecalciferol (vitamin D3) 25 mcg (1,000 unit) capsule 1,000 unit PO DAILY Qty: 90 1RF Referrals Follow up/Referrals: Cash Gerber MD [Primary Care Provider] - See instructions Discharge ED Provider: Juana Barroso [facility] [place] HPI General Stated complaint: vomiting, diarrhea, fatigue Mode of Arrival: Ambulatory Source of Information: Patient Limitations: No Limitations Time Seen by Provider: 12/29/21 10:41 Description of Symptoms (Recalled from Triage Doc. by RN): PATIENT C/O ABDOMINAL PAIN, VOMITING, DIARRHEA, DECREASED APPETITE, AND FATIGUE X 3 DAYS. HE REPORTS SYMPTOMS STARTED AFTER DRINKING SOME BEERS ON MONDAY NIGHT HEENT Symptoms (Recalled from RN notes): No Resp Symptoms (Recalled from RN notes): No Skin Symptoms (Recalled from RN notes): No MS Symptoms (Recalled from RN notes): No Functional Status (Recalled from RN notes): WNL History of Present Illness Provider Complaint: Patient states that he use to be a bad diabetic and he feels like he did before he went into coma, States that he went out on Monday and drink some beers and ever since he has been having pain in his abdomen and turning of his stomach States he has had a little diarrhea on and off and nausea States that he has been having cold sweats and just 'not feeling right' States that he hasnt been able to eat in the last couple of days and feeling off so today when he was still not feeling well he came in Related Data Previous Rx's Medication Instructions Recorded cholecalciferol (vitamin D3) 25 1,000 unit PO DAILY #90 caps 07/12/21 mcg (1,000 unit) capsule ergocalciferol (vitamin D2) 1,250 50,000 unit PO QWEEK 90 days #12 07/12/21 mcg (50,000 unit) capsule caps Allergies Allergy/AdvReac Type Severity Reaction Status Date / Time No Known Allergies Allergy Verified 08/09/21 13:03 Worker's Comp Is this a Worker's Comp case?: No [facility] Medical History (Updated 12/29/21 @ 10:40 by Tish Atkinson RN) Anxiety COPD (chronic obstructive pulmonary disease) Depression Diabetes mellitus, type 2 Hypertension Neuropathy Social History (Updated 12/29/21 @ 10:40 by Tish Atkinson RN) Smoking Status: Current every day smoker tobacco type: cigarettes packs per day: 1 alcohol intake: never substance use type: former substance user, marijuana, crack/cocaine and hallucinogens current occupational status: unemployed and disabled Travel in the last 8 weeks: None household members: spouse and children housing: house number of children: 1 caffeine: Yes ROS Obtained: Yes All systems reviewed & no additional complaints except as documented and Yes Systems reviewed as appropriate & no additional complaints except as documented Constitutional Constitutional: Reports system reviewed and no additional complaints, except as documented, Reports as per HPI and Reports other (cold sweats) ENT Ears, Nose, Mouth, and Throat: Reports system reviewed and no additional complaints, except as documented and Reports as per HPI Cardiovascular Cardiovascular: Reports system reviewed and no additional complaints, except as documented and Reports as per HPI Respiratory Respiratory: Reports system reviewed and no additional complaints, except as documented and Reports as per HPI Gastrointestinal Gastrointestingal: Reports system reviewed and no additional complaints, except as documented, as per HPI, abdominal pain (left mid/lower), diarrhea (on and off) and nausea Physical Exam General General appearance: alert and in no apparent distress Respiratory Respiratory exam: Present normal lung sounds bilaterally; Absent respiratory distress Cardiovascular Cardiovascular exam: Present regular rate and normal rhythm Abd
--- NOTE | 2021-12-29 10:46 | PC.NURSE ---
PATIENT SENT TO ER PER Lebron KNOTT APRN FOR FURTHER EVALUATION. REPORT GIVEN TO Wander SADLER RN BY Lebron KNOTT APRN
--- NOTE | 2021-12-29 10:56 | PC.NURSE ---
PATTI FRIAS at
--- NOTE | 2021-12-29 10:58 | CT_ITS ---
FINAL REPORT TECHNIQUE: After the administration of intravenous contrast, axial images were obtained through the abdomen and pelvis by computed tomography. This study was performed with technique to keep radiation doses as low as reasonably achievable, (ALARA). Individualized dose reduction techniques using automated exposure control or adjustment of the MA and/or KV according to the patient's size were employed. CLINICAL HISTORY: RLQ abdominal pain COMPARISON: 06/22/2021 FINDINGS: Abdomen: The lung bases are clear. The liver is normal in size and attenuation. The spleen is unremarkable. The adrenals are normal. The pancreas is unremarkable. The kidneys enhance appropriately. The aorta is normal in caliber. There is no free fluid or adenopathy. Pelvis: The appendix is at the upper limits of normal in size but similar to prior exam. There is no anabelle appendiceal inflammation. The urinary bladder is unremarkable. There is no free fluid or adenopathy. IMPRESSION: No acute process of the abdomen or pelvis. Reviewed, Interpreted and Dictated by Jorge Art MD Transcribed by Allison Quintero Authenticated and [facility]
--- NOTE | 2021-12-29 11:00 | HMH.EDGENADL ---
Discharge Plan Disposition Patient Disposition: Still a Patient Condition: Fair Prescriptions Prescriptions: New Prilosec 10 mg susp,delayed release for recon 10 mg PO DAILY 30 Days Qty: 30 0RF Referrals Follow up/Referrals: Cash Gerber MD [Primary Care Provider] - See instructions Activity Restrictions/Add. Instructions Additional Instructions/Restrictions: Return to the emergency department for worsening nausea chills or any other concerns within 8 hours otherwise follow-up with your primary care physician within the next few days Clinical Impressions Clinical Impression: Nausea Discharge ED Provider: César Valentin General Adult HPI General Chief complaint: Weakness Stated complaint: vomiting, diarrhea, fatigue Time Seen by Provider: 12/29/21 11:00 Mode of Arrival: Ambulatory Source of Information: Patient Limitations: No Limitations Description of Symptoms (Recalled from ER Triage Doc. by RN): Pt reports not feeling well x5 days, reports headache, n/v/d, sweats and stomach cramping. Pt reports no known sick contacts. History of Present Illness HPI narrative: 46-year-old male presents with nausea vomiting abdominal pain and headaches for the last 5 days. No fever. Has chills as well. He says he has left-sided chest pain as well dull nonradiating. No known exposures to COVID or flu. He has mild dull headache no stiff neck stiffness no confusion. No ear pain. No dysuria. His abdominal pain is right lower abdomen dull nonradiating. Related Data Previous Rx's Medication Instructions Recorded omeprazole magnesium 10 mg oral 10 mg PO DAILY 30 days #30 ea 12/29/21 suspension,delayed release (Prilosec) Allergies Allergy/AdvReac Type Severity Reaction Status Date / Time No Known Allergies Allergy Verified 08/09/21 13:03 [facility] Medical History (Updated 12/29/21 @ 13:52 by César Valentin MD) Anxiety COPD (chronic obstructive pulmonary disease) Depression Diabetes mellitus, type 2 Hypertension Neuropathy Surgical History (Updated 12/29/21 @ 10:58 by Love Antonio RN) History of carpal tunnel repair Social History (Updated 12/29/21 @ 10:40 by Tish Atkinson RN) Smoking Status: Current every day smoker tobacco type: cigarettes packs per day: 1 alcohol intake: never substance use type: former substance user, marijuana, crack/cocaine and hallucinogens current occupational status: unemployed and disabled Travel in the last 8 weeks: None household members: spouse and children housing: house number of children: 1 caffeine: Yes ROS Obtained: Yes All systems reviewed & no additional complaints except as documented Physical Exam General General appearance: alert and in no apparent distress Eye Eye exam: Present PERRL and EOMI ENT ENT exam: Present normal exam and normal oropharynx Neck Neck exam: Present normal inspection Chest Chest inspection: Present symmetric chest wall rise Respiratory Respiratory exam: Present normal lung sounds bilaterally; Absent respiratory distress Cardiovascular Cardiovascular exam: Present regular rate and normal rhythm Abdominal Exam Abdominal exam: Present soft, tenderness (Mild tenderness in right lower quadrant) and tenderness at McBurney's Point; Absent distention, guarding, rebound or Bray's sign Rectal Exam Rectal exam: Present deferred Back Exam Back exam: Present normal inspection Neurological Exam Neurological exam: Present alert and oriented X3 Psychiatric Psychiatric exam: Present normal affect and normal mood Skin Skin exam: Present warm, dry and intact Lymphatic Lymphatic Findings: no adenopathy Medical Decision Making Medical Records Medical records reviewed: Yes I reviewed the patient's medical records. MR Comment: 46-year-old male presents with chills abdominal pain and headache for the last 5 days. He is in no acute distress nontoxic-appearing comfortable in the room. His vital signs are
--- NOTE | 2021-12-29 11:12 | PC.NURSE ---
strep swab and covid swab sent to lab at this time contacted lab to draw blood on pt, IV would not draw blood when started.
[2021-12-29 11:18] LABS: Coronavirus 19, PCR Not Detected (NotDetected); Influenza A, PCR Not Detected (NotDetected); Influenza B, PCR Not Detected (NotDetected)
--- NOTE | 2021-12-29 11:18 | PC.NURSE ---
pt medicated per MAR, warm blanket given and call light within reach
[2021-12-29 11:30] LABS: Strep Scrn Group A (Rapid) Negative (Negative)
[2021-12-29 11:39] LABS: Basophils # 0.2 K/mm3 (0-0.2); Eosinophils # 0.2 K/mm3 (0.0-0.4); Hematocrit 50.7 % (42.0-52.0); Hemoglobin 16.4 g/dL (14.1-18.0); Lymphocytes # 2.6 K/mm3 (0.7-4.5); Lymphocytes % 23.4 % (10-50); Mean Corpuscular HGB Conc 32.4 g/dL (31.8-35.4); Mean Corpuscular Volume 101.9 fl (80-94); Mean Platelet Volume 8.6 fl (7.4-10.4); Monocytes # 0.6 K/mm3 (0.1-1.0); Neutrophils # 7.5 K/mm3 (1.8-7.8); Neutrophils % 67.6 % (37.0-80.0); Platelet Count 178 K/mm3 (142-424); Red Blood Count 4.98 M/mm3 (4.60-6.20); Red Cell Distribution Width 13.2 % (11.5-17.5)
[2021-12-29 11:50] LABS: Alanine Aminotransferase 26 U/L (12-78); Albumin/Globulin Ratio 1.3 (1.1-1.8); Alkaline Phosphatase 112 U/L (38-126); Anion Gap 13.9 mEq/L (5-15); Aspartate Amino Transferase 29 U/L (17-59); Bilirubin,Total 0.4 mg/dl (0.2-1.3); Blood Urea Nitrogen 10 mg/dl (9-20); Carbon Dioxide 24 mmol/L (22.0-30.0); Chloride 107 mmol/L (98-107); Creatinine Clearance Estimated 126 mL/min (50-200); Estimated Glomerular Filt Rate 90 ml/min (>60); GFR (African American) 109 ML/MIN (>60); Globulin 3.2 g/dL (1.3-3.2); Glucose 103 mg/dl (74-100); Lipase 92 U/L (23-300); Potassium 3.9 mmoL/L (3.5-5.1); Sodium 141 mmol/L (136-145); Total Protein,Serum 7.2 g/dl (6.3-8.2)
--- NOTE | 2021-12-29 11:52 | PC.NURSE ---
rad notified of ct order
[2021-12-29 12:03] LABS: Troponin I < 0.01 ng/ml (0.00-0.034)
--- NOTE | 2021-12-29 12:27 | PC.NURSE ---
pt in CT
--- NOTE | 2021-12-29 12:47 | PC.NURSE ---
checked on pt at this, pt laying down resting. Pt states no needs at this time. Call light within reach. Will continue to monitor
== END 2021-12-29 13:35 | disposition still patient (30) ==
LOC: UTC 09:54 → ER 10:46
PROVIDERS: Nurse Practitioner; Emergency Provider Emergency Medicine; PCP Emergency Medicine
DX: R11.10 Vomiting, unspecified (principal); R19.7 Diarrhea, unspecified; R53.83 Other fatigue; R10.9 Unspecified abdominal pain
CPT/HCPCS: 36415; 74177; 80053; 82962; 83690; 84484; 85025; 87430; 96361; 96374; 96375; 99284; C9803; J2405; Q9967; U0003; U0005

== ENCOUNTER 2022-06-06 22:56 | Emergency (ER) | payer MEDICARE, SELFPAY ==
[2022-06-06 22:57] VITALS: BP 134/95; PULSE 70; RESP 19; TEMP 36.8; O2SAT 97; BMI 30.4
[2022-06-06 23:12] LABS: POC Glucose,Bedside 98 (70-110)
[2022-06-06 23:21] LABS: Basophils # 0.1 K/mm3 (0-0.2); Eosinophils # 0.3 K/mm3 (0.0-0.4); Eosinophils % 2.3 % (0.1-12.0); Hematocrit 45.8 % (42.0-52.0); Hemoglobin 15.9 g/dL (14.1-18.0); Lymphocytes # 3.3 K/mm3 (0.7-4.5); Lymphocytes % 24.1 % (10-50); Mean Corpuscular HGB Conc 34.7 g/dL (31.8-35.4); Mean Corpuscular Hemoglobin 33.5 pg (27.0-31.2); Mean Corpuscular Volume 96.6 fl (80-94); Mean Platelet Volume 8.7 fl (7.4-10.4); Monocytes # 0.6 K/mm3 (0.1-1.0); Monocytes % 4.1 % (1.7-9.3); Neutrophils # 9.3 K/mm3 (1.8-7.8); Neutrophils % 68.6 % (37.0-80.0); Platelet Count 207 K/mm3 (142-424); Red Blood Count 4.74 M/mm3 (4.60-6.20); Red Cell Distribution Width 13.1 % (11.5-17.5); White Blood Count 13.5 K/mm3 (4.8-10.8)
[2022-06-06 23:27] LABS: Alanine Aminotransferase 26 U/L (12-78); Albumin Level 4.3 g/dl (3.5-5.0); Alkaline Phosphatase 102 U/L (38-126); Anion Gap 5.6 mEq/L (5-15); Aspartate Amino Transferase 29 U/L (17-59); Bilirubin,Direct 0.3 mg/dl (0.0-0.4); Bilirubin,Indirect 0.1 mg/dL (0.0-0.9); Bilirubin,Total 0.4 mg/dl (0.2-1.3); Bilirubin,Unconjugated 0.1 mg/dL (0.0-1.1); Blood Urea Nitrogen 10 mg/dl (9-20); Calcium 9.1 mg/dl (8.4-10.2); Carbon Dioxide 26 mmol/L (22.0-30.0); Chloride 110 mmol/L (98-107); Creatinine Clearance Estimated 112 mL/min (50-200); Estimated Glomerular Filt Rate 80 ml/min (>60); GFR (African American) 97 ML/MIN (>60); Glucose 100 mg/dl (74-100); Lipase 210 U/L (23-300); Potassium 3.6 mmoL/L (3.5-5.1); Sodium 138 mmol/L (136-145); Total Protein,Serum 7.9 g/dl (6.3-8.2)
[2022-06-07] VITALS: BP 139/96; PULSE 60; O2SAT 95
--- NOTE | 2022-06-07 | PC.NURSE ---
Rounded on pt at this time. Provided with warm blanket
[2022-06-07 00:10] LABS: Microscopic, Urine URINE MICROSCOPIC (MICROSCOPIC)
[2022-06-07 00:11] LABS: Appearance,Urine CLEAR (Clear); Bilirubin,Urine Negative (Negative); Blood, Urine TRACE-I (Negative); Color,Urine YELLOW (Yellow); Glucose,Urine (UA) Negative (Negative); Ketones,Urine Negative (Negative); Leukocyte Esterase,Urine Negative (Negative); Nitrate,Urine Negative (Negative); PH,Urine 6.5 (5.0-8.5); Protein,Urine TRACE (Negative); Urobilinogen,Urine 0.2 EU/dl (0.2)
--- NOTE | 2022-06-07 00:12 | HMH.EDNVD ---
Discharge Plan Disposition Patient Disposition: Home, Self-Care Chief Complaint: Nausea/Vomiting/Diarrhea Prescriptions Prescriptions: No Action No Known Home Medications Referrals Follow up/Referrals: Cash Gerber MD [Primary Care Provider] - See instructions Clinical Impressions Clinical Impression: Acute viral syndrome Instructions Patient Instructions: DI for Nausea -- Adult Discharge ED Provider: Zabrina (ED)Cash Nausea/Vomiting/Diarrhea HPI General Chief complaint: Nausea/Vomiting/Diarrhea Stated complaint: elevated blood sugar, vomiting Time Seen by Provider: 06/07/22 00:12 Mode of Arrival: Wheelchair Source of Information: Patient Limitations: No Limitations Description of Symptoms (Recalled from ER Triage Doc. by RN): 46 M presents with nausea and vomiting that began 1 hour [employer]GER [employer]. Patient states he knows his sugar is probably up. He has DM II, but does not take medication to control this. History of Present Illness HPI Narrative: over the last 2 days with not feeling well and fatigue but denied fever /vomiting/diarrhea and no etoh or cough MD complaint: nausea and vomiting Onset (ago): day(s) Associated Abdominal Pain: No Severity: moderate Associated symptoms: denies other symptoms Related Data Home Medications Medication Instructions Recorded Confirmed No Known Home Medications 06/06/22 06/06/22 Allergies Allergy/AdvReac Type Severity Reaction Status Date / Time No Known Allergies Allergy Verified 08/09/21 13:03 [facility] Disclaimer: The information contained in this section may have been updated after the patient was seen, as this information can be updated by other users. Medical History (Updated 06/07/22 @ 01:17 by Cash Gerber (THUY)MD) Anxiety COPD (chronic obstructive pulmonary disease) Depression Diabetes mellitus, type 2 Hypertension Neuropathy Surgical History (Updated 12/29/21 @ 10:58 by Love Antonio RN) History of carpal tunnel repair Social History (Updated 12/29/21 @ 10:40 by Tish Atkinson RN) Smoking Status: Current every day smoker tobacco type: cigarettes packs per day: 1 alcohol intake: never substance use type: former substance user, marijuana, crack/cocaine and hallucinogens current occupational status: unemployed and disabled Travel in the last 8 weeks: None household members: spouse and children housing: house number of children: 1 caffeine: Yes ROS Obtained: Yes All systems reviewed & no additional complaints except as documented Physical Exam General General appearance: alert Head Head exam: normocephalic Eye Eye exam: Present PERRL and EOMI; Absent scleral icterus ENT ENT exam: Present mucous membranes moist Neck Neck exam: Present full ROM and trachea midline; Absent meningismus Respiratory Respiratory exam: Present normal lung sounds bilaterally; Absent respiratory distress Cardiovascular Cardiovascular exam: Present regular rate Abdominal Exam Abdominal exam: Present soft; Absent tenderness Extremities Exam Extremities exam: Present full ROM Neurological Exam Neurological exam: Present alert, oriented X3 and CN II-XII intact; Absent motor sensory deficit Psychiatric Psychiatric exam: Present normal affect Skin Skin exam: Absent rash Medical Decision Making Medical Records Medical records reviewed: Yes I reviewed the patient's medical records. Donell Inquiry Pt receiving controlled substance: No Vital Signs: 06/06/22 22:57 06/07/22 00:00 06/07/22 00:31 Temperature 98.3 F Temperature Source Oral Pulse Rate 60 60 Pulse Rate [Right] 70 Respiratory Rate 19 Blood Pressure 139/96 H 139/92 H Blood Pressure [Right Arm] 134/95 H Blood Pressure Mean [Right Arm] 108 Blood Pressure Source [Right Arm] Automatic Cuff Blood Pressure Position [Right Arm] Sitting 02 Sat by Pulse Oximetry 97 95 95 Oxygen Delivery Method Room Air Room Air Room Air
[2022-06-07 00:16] LABS: Coronavirus 19, PCR Not Detected (NotDetected); Influenza A, PCR Not Detected (NotDetected); Influenza B, PCR Not Detected (NotDetected)
[2022-06-07 00:17] LABS: RBC,Urine Occasional #/hpf (0-3); Squamous Epithelial Cell,Urine Occasional #/hpf (0-5); WBC,Urine Occasional #/hpf (0-3)
[2022-06-07 00:25] LABS: C-Reactive Protein 7.4 mg/L (0-4)
[2022-06-07 00:31] VITALS: BP 139/92; PULSE 60; O2SAT 95
[2022-06-07 00:39] LABS: Procalcitonin 0.066 ng/mL (0.0-2.0)
[2022-06-07 00:40] LABS: T4 (Thyroxine) 8.7 ug/dl (5.53-11.0)
[2022-06-07 00:49] LABS: Erythrocyte Sedimentation Rate 19 mm/hr (0-15)
[2022-06-07 00:53] LABS: Thyroid Stimulating Hormone 2.89 uIU/mL (0.465-4.68)
--- NOTE | 2022-06-07 01:15 | PC.NURSE ---
Rounded on pt at this time. Advised he was feeling better and was ready to go home. notified
[2022-06-07 01:17] VITALS: BP 133/83; PULSE 90; RESP 16; TEMP 36.7; O2SAT 99
== END 2022-06-07 01:26 | disposition home or self-care (01) ==
PROVIDERS: Emergency Provider Emergency Medicine; PCP Emergency Medicine
DX: B34.9 Viral infection, unspecified (principal); F41.8 Other specified anxiety disorders; J44.9 Chronic obstructive pulmonary disease, unspecified; E11.40 Type 2 diabetes mellitus with diabetic neuropathy, unspecified; I10 Essential (primary) hypertension; F17.210 Nicotine dependence, cigarettes, uncomplicated; Z20.822 Contact with and (suspected) exposure to COVID-19
CPT/HCPCS: 80048; 80076; 81001; 82962; 83690; 84145; 84436; 84443; 85025; 85651; 86140; 96361; 96374; 99285; C9803; J2405; U0003; U0005

== ENCOUNTER → 2022-09-21 08:11 | Outpatient (POV) | payer MEDICARE, SELFPAY | PROVIDERS: Visit Provider Specialist/Technologist | DX: Z00.00 Encounter for general adult medical examination without abnormal findings (principal) ==

== ENCOUNTER 2022-10-05 10:44 | Emergency (ER) | payer MEDICARE, SELFPAY ==
[2022-10-05 11:00] VITALS: BP 141/86; PULSE 63; RESP 18; TEMP 36.6; O2SAT 98; BMI 31.6
--- NOTE | 2022-10-05 11:09 | EXP.UTC ---
Discharge Plan Disposition Patient Disposition: Home, Self-Care Condition: Good Prescriptions Prescriptions: New prednisone 5 mg tablets,dose pack See Rx Instructions .ROUTE .COMPLEX Qty: 21 0RF Rx Instructions: take as directed on package instructions Referrals Follow up/Referrals: Cash Gerber MD [Primary Care Provider] - See instructions Activity Restrictions/Add. Instructions Additional Instructions/Restrictions: Start oral steriods tomorrow 10/07/22 Oatmeal bathes may help to dry up the rash and help with itching Over the counter Calamine lotion may help with itching and dry the rash Oral steriods may raise your blood sugar but it shoud return to normal after medication is complete Follow up with your Family Doctor if needed Clinical Impressions Clinical Impression: Poison rosina dermatitis Instructions Patient Instructions: Poison [place], Poison [place], Poison [place] Discharge ED Provider: Juana Barroso [facility] [place] HPI General Stated complaint: possible poison ros[place], l arm, neck, head Mode of Arrival: Ambulatory Source of Information: Patient Limitations: No Limitations Time Seen by Provider: 10/05/22 11:05 Description of Symptoms (Recalled from Triage Doc. by RN): PATIENT C/O RASH ALL OVER BODY X 3 DAYS HEENT Symptoms (Recalled from RN notes): No Resp Symptoms (Recalled from RN notes): No Skin Symptoms (Recalled from RN notes): Yes MS Symptoms (Recalled from RN notes): No Functional Status (Recalled from RN notes): WNL History of Present Illness Provider Complaint: Patient states that he thinks he may have got into some poison rosina States that he recently did some weed eating and he started breaking out in rash States that it is on the back of his head, neck, chest and bilateral upper arms and it is itching and still spreading States that he took Benadryl but that didn't help much Related Data Previous Rx's Medication Instructions Recorded prednisone 5 mg tablets in a dose See Rx Instructions PO .COMPLEX 10/05/22 pack #21 tabs Allergies Allergy/AdvReac Type Severity Reaction Status Date / Time No Known Allergies Allergy Verified 06/16/22 09:18 Worker's Comp Is this a Worker's Comp case?: No [facility] Disclaimer: The information contained in this section may have been updated after the patient was seen, as this information can be updated by other users. Medical History (Updated 10/05/22 @ 11:21 by Juana Barroso APRN) Anxiety COPD (chronic obstructive pulmonary disease) Dehydration Depression Diabetes mellitus, type 2 DKA (diabetic ketoacidoses) Hypertension Neuropathy New onset type 2 diabetes mellitus Nonketotic hyperglycinemia, type II Surgical History (Updated 12/29/21 @ 10:58 by Love Antonio RN) History of carpal tunnel repair Social History (Updated 12/29/21 @ 10:40 by Tish Atkinson RN) Smoking Status: Current every day smoker tobacco type: cigarettes packs per day: 1 alcohol intake: never substance use type: former substance user, marijuana, crack/cocaine and hallucinogens current occupational status: unemployed and disabled Travel in the last 8 weeks: None household members: spouse and children housing: house number of children: 1 caffeine: Yes ROS Obtained: Yes All systems reviewed & no additional complaints except as documented and Yes Systems reviewed as appropriate & no additional complaints except as documented Constitutional Constitutional: Reports system reviewed and no additional complaints, except as documented and Reports as per HPI ENT Ears, Nose, Mouth, and Throat: Reports system reviewed and no additional complaints, except as documented and Reports as per HPI Cardiovascular Cardiovascular: Reports system reviewed and no additional complaints, except as documented and Reports as per HPI Respiratory Respiratory: Reports system reviewed and no additional complaints, except as documented and Reports as per HPI Gastrointest
[2022-10-05 11:21] VITALS: BP 141/86; PULSE 63; RESP 18; TEMP 36.6; O2SAT 98
== END 2022-10-05 11:29 | disposition home or self-care (01) ==
PROVIDERS: Emergency Provider Nurse Practitioner; PCP Emergency Medicine
DX: L23.7 Allergic contact dermatitis due to plants, except food (principal); J44.9 Chronic obstructive pulmonary disease, unspecified; F41.9 Anxiety disorder, unspecified; E11.40 Type 2 diabetes mellitus with diabetic neuropathy, unspecified; I10 Essential (primary) hypertension; F32.A Depression, unspecified; F17.210 Nicotine dependence, cigarettes, uncomplicated
CPT/HCPCS: 96372; 99204; 99212; G0463

== ENCOUNTER 2022-10-16 18:52 | Emergency (ER) | payer MEDICARE, SELFPAY ==
[2022-10-16 18:55] VITALS: BP 140/93; PULSE 71; RESP 18; TEMP 36.8; O2SAT 98; BMI 31.1
--- NOTE | 2022-10-16 19:09 | EXP.UTC ---
Discharge Plan Disposition Patient Disposition: Home, Self-Care Condition: Good Prescriptions Prescriptions: New methocarbamol 500 mg tablet 500 mg PO TID PRN (Reason: muscle spasm) Qty: 12 0RF No Action prednisone 5 mg tablets,dose pack See Rx Instructions .ROUTE .COMPLEX Qty: 21 0RF Rx Instructions: take as directed on package instructions Referrals Follow up/Referrals: Celeste Gerber, [Primary Care Provider] - See instructions Activity Restrictions/Add. Instructions Additional Instructions/Restrictions: *Ibuprofen armando 6 hours with meal as needed for pain/inflammation *Remember you had a Toradol shot in the clinic today, which is similar to Motrin *Not additional anti-inflammatory like motrin, aleve, advil with the above amount of ibuprofen. You can still take Tylenol every 4 hours as needed if you need something else for pain *Ice 20 minutes every 2 hours for the first 48 hours after the initial injury followed by moist heat every 20 minutes 3-4 times a day to affected area *Muscle relaxer every 8 hours as needed for muscle spasms but remember, it WILL cause drowsiness You cannot take it and drive, operate machinery or care for small children. *Keep this area active, no movement leads to more stiffness, However take it easy and avoid heavy lifting pushing or pulling *Follow up with you family doctor if no improvement for further treatment ? Clinical Impressions Clinical Impression: Muscle spasm Back pain Qualifiers: Back pain location: back pain in unspecified location Chronicity: unspecified Back pain laterality: left Qualified Code(s): M54.9 - Dorsalgia, unspecified Stand Alone Forms Stand Alone Forms: Work/School Release Instructions Patient Instructions: Low Back Pain, DI for Sciatica, Thoracic Back Pain, DI for Muscle Spasm Discharge ED Provider: Juana Barroso [facility] General Stated complaint: back pain Mode of Arrival: Ambulatory Source of Information: Patient Limitations: No Limitations Time Seen by Provider: 10/16/22 19:09 Description of Symptoms (Recalled from Triage Doc. by RN): PATIENT C/O PAIN TO LEFT SIDE OF BODY FROM SHOULDER DOWN THROUGH LEG THAT STARTED THIS MORNING. 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 HEENT Symptoms (Recalled from RN notes): No Resp Symptoms (Recalled from RN notes): No Skin Symptoms (Recalled from RN notes): No MS Symptoms (Recalled from RN notes): Yes Functional Status (Recalled from RN notes): WNL History of Present Illness Provider Complaint: Patient states this morning he was having pain in his left sciatica area that was going down his leg but that is a little better and he is able to move and walk he is feeling tight in his left upper shoulder/neck area and back and hurts when he tries to raise his arm States feels like it his muscle spasms up in his back causing his shoulder and hip to hurt Denies known injury denies chest pain and denies falling Related Data Previous Rx's Medication Instructions Recorded prednisone 5 mg tablets in a dose See Rx Instructions PO .COMPLEX 10/05/22 pack #21 tabs methocarbamol 500 mg tablet 500 mg PO TID PRN muscle spasm #12 10/16/22 tabs Allergies Allergy/AdvReac Type Severity Reaction Status Date / Time No Known Allergies Allergy Verified 06/16/22 09:18 Worker's Comp Is this a Worker's Comp case?: No PF[facility] Disclaimer: The information contained in this section may have been updated after the patient was seen, as this information can be updated by other users. Medical History (Updated 10/16/22 @ 19:35 by Juana Barroso APRN) Anxiety COPD (chronic obstructive pulmonary disease) Dehydration Depression Diabetes mellitus, type 2 DKA (diabetic ketoacidoses) Hypertension Neuropathy New onset type 2 diabetes mellitus Nonketotic hyperglycinemia, type II Surgical History (Updated 12/29/21 @ 10:58 by Love
[2022-10-16 19:30] VITALS: BP 140/93; PULSE 71; RESP 18; TEMP 36.8; O2SAT 98
== END 2022-10-16 19:52 | disposition home or self-care (01) ==
PROVIDERS: Emergency Provider Nurse Practitioner; PCP Family Medicine
DX: M54.9 Dorsalgia, unspecified (principal); F17.210 Nicotine dependence, cigarettes, uncomplicated; J44.9 Chronic obstructive pulmonary disease, unspecified; E11.610 Type 2 diabetes mellitus with diabetic neuropathic arthropathy; I10 Essential (primary) hypertension; F41.9 Anxiety disorder, unspecified; F32.A Depression, unspecified
CPT/HCPCS: 96372; 99212; 99214; G0463

== ENCOUNTER 2022-10-18 14:32 | Emergency (ER) | payer MEDICARE, SELFPAY ==
[2022-10-18 14:33] VITALS: BP 142/91; PULSE 69; RESP 17; TEMP 36.3; O2SAT 95; BMI 30.9
[2022-10-18 14:45] VITALS: BP 122/82; PULSE 69; O2SAT 96
--- NOTE | 2022-10-18 14:58 | HMH.EDGENADL ---
Discharge Plan Disposition Patient Disposition: Home, Self-Care Prescriptions Prescriptions: New ibuprofen 800 mg tablet 800 mg PO TID PRN (Reason: pain) 7 Days Qty: 20 0RF prednisone 50 mg tablet 50 mg PO DAILY 5 Days Qty: 5 0RF Rx Instructions: Please begin 1 day after ED visit cyclobenzaprine 5 mg tablet 5 mg PO TID PRN (Reason: muscle spasm) 5 Days Qty: 15 0RF No Action prednisone 5 mg tablets,dose pack See Rx Instructions .ROUTE .COMPLEX Qty: 21 0RF Rx Instructions: take as directed on package instructions methocarbamol 500 mg tablet 500 mg PO TID PRN (Reason: muscle spasm) Qty: 12 0RF Referrals Follow up/Referrals: Cash Gerber MD [Primary Care Provider] - See instructions Clinical Impressions Clinical Impression: Cervical radiculopathy, Sciatica Instructions Patient Instructions: DI for Low Back Pain Discharge ED Provider: Francine Gilliam General Adult HPI General Chief complaint: Back Pain/Injury Stated complaint: Back pain, LT arm pain no accident Time Seen by Provider: 10/18/22 14:38 Mode of Arrival: Ambulatory Source of Information: Patient Limitations: No Limitations Description of Symptoms (Recalled from ER Triage Doc. by RN): pt to the ED with left lower back pain that radiates down his left leg since yesterday. pt reports he came to the [facility] yesterday and recieved 2 IM injections that helped his pain but did not last. pt reports today along with is back pain his left arm is hurting now as well. pt denies any known injury. History of Present Illness HPI narrative: Patient is a 46-year-old male presenting today with back pain radiating down his left leg and neck pain rating down his left arm. States that these both started at the same time yesterday without any trauma or exertional activity. States he has a known history of sciatica but has not had any problems with it in several years he is followed by Dr. Vitaliy Gerber and has not had an MRI in the past mainly because he has not had ongoing symptoms. He denies any urinary retention urinary or bowel incontinence lower extremity weakness saddle anesthesia history of injection drug use fever or cancer. Denies any weakness in his left upper extremity. Denies any chest pain exertional symptoms or any shortness of breath. He was at the urgent treatment clinic 2 days ago and was given a low-dose of a prednisone taper as well as a low-dose of methocarbamol without any significant improvement. He presents today with worsening symptoms and concern for symptomatic control. Related Data Previous Rx's Medication Instructions Recorded prednisone 5 mg tablets in a dose See Rx Instructions PO .COMPLEX 10/05/22 pack #21 tabs methocarbamol 500 mg tablet 500 mg PO TID PRN muscle spasm #12 10/16/22 tabs cyclobenzaprine 5 mg tablet 5 mg PO TID PRN muscle spasm 5 10/18/22 days #15 tabs ibuprofen 800 mg tablet 800 mg PO TID PRN pain 7 days #20 10/18/22 tabs prednisone 50 mg tablet 50 mg PO DAILY 5 days #5 tabs 10/18/22 Allergies Allergy/AdvReac Type Severity Reaction Status Date / Time No Known Allergies Allergy Verified 06/16/22 09:18 [facility] Disclaimer: The information contained in this section may have been updated after the patient was seen, as this information can be updated by other users. Medical History (Updated 10/18/22 @ 15:01 by Francine Gilliam MD) Anxiety COPD (chronic obstructive pulmonary disease) Dehydration Depression Diabetes mellitus, type 2 DKA (diabetic ketoacidoses) Hypertension Neuropathy New onset type 2 diabetes mellitus Nonketotic hyperglycinemia, type II Surgical History (Updated 12/29/21 @ 10:58 by Love Antonio RN) History of carpal tunnel repair Social History (Updated 12/29/21 @ 10:40 by Tish Atkinson RN) Smoking Status: Never smoker alcohol intake: never substance use type: former substance user, marijuana, crack/cocaine and hallucinogens
[2022-10-18 15:15] VITALS: BP 133/94; PULSE 63; O2SAT 96
[2022-10-18 16:00] VITALS: BP 133/84; PULSE 55; RESP 17; TEMP 37.1; O2SAT 98
== END 2022-10-18 16:02 | disposition home or self-care (01) ==
PROVIDERS: Emergency Provider Student in an Organized Health Care Education/Training Program; PCP Emergency Medicine
DX: M54.12 Radiculopathy, cervical region (principal); M54.42 Lumbago with sciatica, left side; M79.602 Pain in left arm; F41.9 Anxiety disorder, unspecified; J44.9 Chronic obstructive pulmonary disease, unspecified; F32.A Depression, unspecified; E11.40 Type 2 diabetes mellitus with diabetic neuropathy, unspecified; I10 Essential (primary) hypertension
CPT/HCPCS: 96372; 99283; 99284

== ENCOUNTER → 2022-10-20 14:28 | Outpatient (CLI) | payer MEDICARE, SELFPAY ==
--- NOTE | 2022-10-20 14:35 | XR_ITS ---
FINAL REPORT CLINICAL HISTORY: Mid-Back pain FINDINGS: LUMBAR SPINE Five views demonstrate no acute fracture. There is mild degenerative change with small osteophytes. There is no malalignment. IMPRESSION: Mild degenerative change with small osteophytes. Reviewed, Interpreted and Dictated by Jose Luis Houser III, MD Transcribed by Margaret Del Real Authenticated and . [facility]
--- NOTE | 2022-10-20 14:35 | XR_ITS ---
FINAL REPORT CLINICAL HISTORY: Mid-Back pain FINDINGS: THORACIC SPINE Four views demonstrate no acute fracture. There is mild degenerative change with osteophytes. There is no malalignment. IMPRESSION: Mild degenerative change with osteophytes. Reviewed, Interpreted and Dictated by Jose Luis Houser III, MD Transcribed by Margaret Del Real Authenticated and [facility]
== END ==
LOC: RAD 14:29
PROVIDERS: PCP Emergency Medicine; Visit Provider Nurse Practitioner Family
DX: M54.50 Low back pain, unspecified (principal); M54.6 Pain in thoracic spine
CPT/HCPCS: 72072; 72110

== ENCOUNTER 2022-11-04 14:52 | Outpatient (RCR) | payer MEDICARE, SELFPAY ==
--- NOTE | 2022-11-04 15:55 | HMH.PTOPEV ---
PT Outpatient Evaluation Rehab PT Outpatient Evaluation Start: 11/04/22 14:59 Freq: Status: Active Protocol: Document 11/04/22 14:59 PATTY (Rec: 11/04/22 15:55 JULIETHPAT [id number]) E-signed By Jenni Salmeron, PT Outpatient Therapy Subjective History Subjective History Pt presents to the PT clinic with reports of low back pain and LLE pain. Pt reports that the back pain began a couple of weeks ago. Pt reports that he woke up one morning and felt low back pain and LLE shooting pain. Pt reports that he went to see he PCP and they gave him a steroid shot. Pt reports that he had 10-15 minutes of relief following the injections. Pt reports that his doctor prescribed him some medication but that he was unable to afford it. Pt reports that he has tried ibuprofen, hot pack and muscle rub at home with little relief. Pt reports that he had a x-ray performed that revealed degeneration throughout his lumbar spine. Pt reports that his low back pain and LLE pain come and go. Pt denies any reports of weakness throughout LLE. PMH: HTN (uncontrolled), [place] BP: 150/100mmHg, taken in sitting position. Advised pt to follow-up with PCP due to uncontrolled HTN Chief Complaint Pain,Spasms,Stiff,Gives out/ Unstable,Paresthesia Symptom Type Ache,Throb,Sharp,Stabbing, Numbness,Tingling,Shooting Symptoms Relieved By Nothing Symptoms Aggravated By Supine,Sitting,Standing, Bending/Stooping,Physical Activity,Twisting,Walking, Lifting Prior Functional Limitations None Current Functional Limitations Reaching,Lifting,Housework, Driving,Sleeping,Standing, Sitting,Squatting,Recreation Activity,Walking,Stairs, [place]
== END 2022-11-04 14:55 | disposition home or self-care (01) ==
LOC: PT 14:52
PROVIDERS: PCP Emergency Medicine; Visit Provider Nurse Practitioner Family
DX: M54.50 Low back pain, unspecified (principal)
CPT/HCPCS: 97163

== ENCOUNTER 2023-10-13 17:51 | Emergency (ER) | payer MEDICARE, SELFPAY ==
--- OUTSIDE RECORDS SUMMARY | 2023-10-13 17:59 | XMS_ITS | Clinical Summary ---
Author Name Unknown Address [address] [place] [address] Phone Organization [facility] Address [address] [place] [address] Phone Care Team Providers Care Head Of Insight Name Role Milton Thompson MD. [phone] Conditions or Problems No information available. Medications No information available. Medications Administered No information available. Allergies, Adverse Reactions, Alerts No information available. Results No information available. Plan of Care No information available. Procedures No information available. Vital Signs No information available. Immunizations No information available. Advance Directives No information available.
[2023-10-13 18:05] VITALS: BP 116/70; PULSE 63; RESP 18; TEMP 36.7; O2SAT 97; BMI 30.3
--- NOTE | 2023-10-13 18:06 | EXP.UTC ---
Discharge Plan Disposition Patient Disposition: Home, Self-Care Condition: Good Prescriptions Prescriptions: New permethrin 5 % cream 1 applic topical Q14D Qty: 60 0RF Rx Instructions: apply second treatment 14 days after first treatment if live lice remain triamcinolone acetonide 0.1 % cream 1 applic topical BID PRN (Reason: itching) Qty: 30 0RF methylprednisolone 4 mg Tablets,Dose Pack 4 mg PO DIRECTED 6 Days Qty: 21 0RF Rx Instructions: Take 1 pack as directed for 6 days Referrals Follow up/Referrals: Александр Montoya DO [Primary Care Provider] - See instructions Activity Restrictions/Add. Instructions Additional Instructions/Restrictions: Try to identify and avoid contact with the offending substance. Don't start the oral steroids until tomorrow. Don't put the topical steroids (triamcinolone) on your face or your groin. Follow up with your regular doctor. GO TO THE ER FOR ANY WORSENING SYMPTOMS OR CONCERNS Clinical Impressions Clinical Impression: Chigger bites Instructions Patient Instructions: DI for Insect Bites and Stings, Methylprednisolone, Dexamethasone Injection Discharge ED Provider: Isaiah Blackmon [facility] [place] [place] General Stated complaint: rash Time Seen by Provider: 10/13/23 18:06 Related Data Previous Rx's Medication Instructions Recorded methylprednisolone 4 mg tablets in 4 mg PO DIRECTED 6 days #21 tabs 10/13/23 a dose pack permethrin 5 % topical cream 1 applic topical Q14D 2 doses #60 10/13/23 grams triamcinolone acetonide 0.1 % 1 applic topical BID PRN itching 10/13/23 topical cream #30 grams Allergies Allergy/AdvReac Type Severity Reaction Status Date / Time No Known Allergies Allergy Verified 10/13/23 18:15 [facility] Disclaimer: The information contained in this section may have been updated after the patient was seen, as this information can be updated by other users. Medical History (Updated 10/13/23 @ 18:44 by Isaiah Blackmon APRN) COPD (chronic obstructive pulmonary disease) Diabetes mellitus, type 2 Hypertension Neuropathy Nonketotic hyperglycinemia, type II Dehydration New onset type 2 diabetes mellitus DKA (diabetic ketoacidoses) Surgical History History of carpal tunnel repair Social History Smoking Status: Never smoker alcohol intake: never substance use type: former substance user, marijuana, crack/cocaine and hallucinogens current occupational status: unemployed and disabled Travel in the last 8 weeks: None household members: spouse and children housing: house number of children: 1 caffeine: Yes ROS Obtained: Yes All systems reviewed & no additional complaints except as documented Constitutional Constitutional: Denies chills and Denies fever(s) Eyes Eyes: Denies eye discharge ENT Ears, Nose, Mouth, and Throat: Denies dizziness, Denies otalgia and Denies sore throat Cardiovascular Cardiovascular: Denies chest pain Respiratory Respiratory: Denies shortness of breath, Denies chest congestion, Denies cough, Denies stridor and Denies wheezing Gastrointestinal Gastrointestingal: Denies nausea or vomiting Musculoskeletal Musculoskeletal: Reports system reviewed and no additional complaints, except as documented and Denies arthralgias Integumentary/Breasts Skin/Breast: Reports as per HPI and Reports rash Neurologic Neurologic: Denies dizziness and Denies paresthesias Allergic/Immunologic Allergic/Immunologic: Denies wheezing Physical Exam General General appearance: alert and in no apparent distress Head Head exam: atraumatic, normocephalic and normal inspection Eye Eye exam: Present normal appearance, PERRL and EOMI ENT ENT exam: Present normal exam, normal oropharynx, mucous membranes moist, TM's normal bilaterally and normal external ear exam Neck Neck exam: Present normal inspection, full ROM and trachea midline; Absent meningismus or lymphadenopathy Chest Chest inspection: Present normal inspection and symmetric chest wall rise; Absent tenderness Respiratory Respiratory exam: Present normal lung sounds bilaterally; Absent respiratory distress Cardiovascular Cardiovascular exam: Present regular rate and normal rhythm; Absent JVD Abdominal Exam Abdominal exam: Present soft and normal bowel sounds; Absent distention, tenderness or guarding Extremities Exam Extremities exam: Present normal inspection, full ROM and normal capillary refill; Absent calf tenderness Back Exam Back exam: Present normal inspection; Absent tenderness Neurological Exam Neurological exam: Present alert and oriented X3 Psychiatric Psychiatric exam: Present normal affect and normal mood Skin Skin exam: Present rash Lymphatic Lymphatic Findings: no adenopathy Medical Decision Making Medical Records Medical records reviewed: No I reviewed the patient's medical records. Donell Inquiry Pt receiving controlled substance: No
[2023-10-13] MEDS: DEXAMETHASONE 4MG/ML 1ML VIAL 8 MG IM (18:32)
[2023-10-13 18:56] VITALS: BP 116/70; PULSE 63; RESP 18; TEMP 36.7; O2SAT 97
== END 2023-10-13 18:56 | disposition home or self-care (01) ==
PROVIDERS: Emergency Provider Nurse Practitioner Family; PCP Internal Medicine
DX: B88.0 Other acariasis (principal)
CPT/HCPCS: 96372; 99212; 99214; G0463; J1100

== ENCOUNTER 2023-10-26 10:37 | Emergency (ER) | payer MEDICARE, SELFPAY ==
--- OUTSIDE RECORDS SUMMARY | 2023-10-26 10:41 | XMS_ITS | Clinical Summary ---
Author Name Unknown Address [address] [place] [address] Phone Organization [facility] Address [address] [place] [address] Phone Care Team Providers Care Studio Operator Name Role Milton Thompson MD. [phone] Conditions or Problems No information available. Medications No information available. Medications Administered No information available. Allergies, Adverse Reactions, Alerts No information available. Results No information available. Plan of Care No information available. Procedures No information available. Vital Signs No information available. Immunizations No information available. Advance Directives No information available.
[2023-10-26 10:45] VITALS: BP 133/94; PULSE 70; RESP 18; TEMP 36.4; O2SAT 99; BMI 30.7
--- NOTE | 2023-10-26 10:58 | EXP.UTC ---
Discharge Plan Disposition Patient Disposition: Home, Self-Care Condition: Good Prescriptions Prescriptions: New prednisone 10 mg tablet 10 mg PO DIRECTED 9 Days Qty: 21 0RF Rx Instructions: Take 4 tablets daily for 3 days, then take 2 tablets daily for 3 days, then take 1 tablet daily for 3 days, then stop. diphenhydramine HCl 25 mg capsule 25 mg PO Q6HP PRN (Reason: Itching) Qty: 30 0RF triamcinolone acetonide 0.1 % cream 1 applic topical BID PRN (Reason: itching) Qty: 30 0RF Referrals Follow up/Referrals: Cheri Denny MD [Referring] - See instructions Александр Montoya DO [Primary Care Provider] - See instructions Activity Restrictions/Add. Instructions Additional Instructions/Restrictions: Try to identify and avoid contact with the offending substance. The diphenhydramine (benedryl) will make you drowsy, so don't drive or operate heavy machinery after taking it. Don't put the topical steroids (triamcinolone) on your face or your groin. Follow up with your regular doctor. Follow up with dermatology (Dr. Denny) if your symptoms continue. I put in the referral. Her office phone number will be on this paperwork. You will need to call her office to schedule the appointment. GO TO THE ER FOR ANY WORSENING SYMPTOMS OR CONCERNS Clinical Impressions Clinical Impression: Chronic pruritus Instructions Patient Instructions: Prednisone, Triamcinolone, Diphenhydramine Discharge ED Provider: Isaiah Blackmon [facility] General Stated complaint: chiggers Mode of Arrival: Ambulatory Source of Information: Patient Limitations: No Limitations Time Seen by Provider: 10/26/23 10:57 Description of Symptoms (Recalled from Triage Doc. by RN): PATIENT C/O CHIGGER BITES X 3 WEEKS HEENT Symptoms (Recalled from RN notes): No Resp Symptoms (Recalled from RN notes): No Skin Symptoms (Recalled from RN notes): Yes MS Symptoms (Recalled from RN notes): No Functional Status (Recalled from RN notes): WNL History of Present Illness Provider Complaint: He is back to f/u with his chronic itching. He states that the meds did not help since he was here before. Related Data Previous Rx's Medication Instructions Recorded diphenhydramine HCl 25 mg capsule 25 mg PO Q6HP PRN Itching #30 caps 10/26/23 prednisone 10 mg tablet 10 mg PO DIRECTED 9 days #21 10/26/23 tabs triamcinolone acetonide 0.1 % 1 applic topical BID PRN itching 10/26/23 topical cream #30 grams Allergies Allergy/AdvReac Type Severity Reaction Status Date / Time No Known Allergies Allergy Verified 10/13/23 18:15 Worker's Comp Is this a Worker's Comp case?: No [facility] Disclaimer: The information contained in this section may have been updated after the patient was seen, as this information can be updated by other users. Medical History (Updated 10/26/23 @ 11:00 by Isaiah Blackmon APRN) COPD (chronic obstructive pulmonary disease) Diabetes mellitus, type 2 Hypertension Neuropathy Nonketotic hyperglycinemia, type II Dehydration New onset type 2 diabetes mellitus DKA (diabetic ketoacidoses) Surgical History History of carpal tunnel repair Social History Smoking Status: Never smoker alcohol intake: never substance use type: former substance user, marijuana, crack/cocaine and hallucinogens current occupational status: unemployed and disabled Travel in the last 8 weeks: None household members: spouse and children housing: house number of children: 1 caffeine: Yes ROS Obtained: Yes All systems reviewed & no additional complaints except as documented Constitutional Constitutional: Denies chills and Denies fever(s) Eyes Eyes: Denies eye discharge ENT Ears, Nose, Mouth, and Throat: Denies dizziness, Denies otalgia and Denies sore throat Cardiovascular Cardiovascular: Denies chest pain Respiratory Respiratory: Denies shortness of breath, Denies chest congestion, Denies cough, Denies stridor and Denies wheezing Gastrointestinal Gastrointestingal: Denies nausea or vomiting Musculoskeletal Musculoskeletal: Reports system reviewed and no additional complaints, except as documented and Denies arthralgias Integumentary/Breasts Skin/Breast: Reports as per HPI and Reports rash Neurologic Neurologic: Denies dizziness and Denies paresthesias Allergic/Immunologic Allergic/Immunologic: Denies wheezing Physical Exam General General appearance: alert and in no apparent distress Head Head exam: atraumatic, normocephalic and normal inspection Eye Eye exam: Present normal appearance, PERRL and EOMI ENT ENT exam: Present normal exam, normal oropharynx, mucous membranes moist, TM's normal bilaterally and normal external ear exam Neck Neck exam: Present normal inspection, full ROM and trachea midline; Absent meningismus or lymphadenopathy Chest Chest inspection: Present normal inspection and symmetric chest wall rise; Absent tenderness Respiratory Respiratory exam: Present normal lung sounds bilaterally; Absent respiratory distress Cardiovascular Cardiovascular exam: Present regular rate and normal rhythm; Absent JVD Abdominal Exam Abdominal exam: Present soft and normal bowel sounds; Absent distention, tenderness or guarding Extremities Exam Extremities exam: Present normal inspection, full ROM and normal capillary refill; Absent calf tenderness Back Exam Back exam: Present normal inspection; Absent tenderness Neurological Exam Neurological exam: Present alert and oriented X3 Psychiatric Psychiatric exam: Present normal affect and normal mood Skin Skin exam: Present rash Lymphatic Lymphatic Findings: no adenopathy Medical Decision Making Medical Records Medical records reviewed: No I reviewed the patient's medical records. Donell Inquiry Pt receiving controlled substance: No Vital Signs: 10/26/23 10:45 Temperature 97.6 F Temperature Source Oral Pulse Rate [Left Brachial] 70 Respiratory Rate 18 Blood Pressure [Left Arm] 133/94 H Blood Pressure Mean [Left Arm] 107 Blood Pressure Source [Left Arm] Automatic Cuff Blood Pressure Position [Left Arm] Sitting 02 Sat by Pulse Oximetry 99 Oxygen Delivery Method Room Air
[2023-10-26 11:04] VITALS: BP 133/94; PULSE 70; RESP 18; TEMP 36.4; O2SAT 99
== END 2023-10-26 11:08 | disposition home or self-care (01) ==
PROVIDERS: Emergency Provider Nurse Practitioner Family; PCP Internal Medicine
DX: L29.9 Pruritus, unspecified (principal); B88.0 Other acariasis
CPT/HCPCS: 99212; 99214; G0463

== ENCOUNTER 2023-11-26 11:42 | Emergency (ER) | payer MEDICARE, MEDICAID, SELFPAY ==
[2023-11-26 11:44] VITALS: BP 152/98; PULSE 86; RESP 15; TEMP 36.7; O2SAT 98; BMI 29.9
--- OUTSIDE RECORDS SUMMARY | 2023-11-26 11:54 | XMS_ITS | Clinical Summary ---
Author Organization [facility] Address [address] [place] [address] Phone Care Team Providers Care Hop Strainer Name Role Phone Didier MINA, Milton Blanco Unavailable [phone] Conditions or Problems No information available. Medications No information available. Medications Administered No information available. Allergies, Adverse Reactions, Alerts No information available. Results No information available. Plan of Care No information available. Procedures No information available. Vital Signs No information available. Immunizations No information available. Advance Directives No information available.
[2023-11-26 12:02] VITALS: BP 126/92; PULSE 75; O2SAT 97
--- NOTE | 2023-11-26 12:19 | HMH.EDGENADL ---
Discharge Plan Disposition Patient Disposition: Home, Self-Care Condition: Good Prescriptions Prescriptions: New triamcinolone acetonide 0.1 % cream 1 applic topical BID Qty: 30 0RF hydroxyzine HCl 25 mg tablet 25 mg PO Q8H PRN (Reason: itching) Qty: 20 0RF No Action prednisone 10 mg tablet 10 mg PO DIRECTED 9 Days Qty: 21 0RF Rx Instructions: Take 4 tablets daily for 3 days, then take 2 tablets daily for 3 days, then take 1 tablet daily for 3 days, then stop. diphenhydramine HCl 25 mg capsule 25 mg PO Q6HP PRN (Reason: Itching) Qty: 30 0RF triamcinolone acetonide 0.1 % cream 1 applic topical BID PRN (Reason: itching) Qty: 30 0RF Referrals Follow up/Referrals: Cheri Denny MD [Referring] - See instructions Александр Montoya DO [Primary Care Provider] - See instructions Sofia Bernstein APRN [Nurse Practitioner] - See instructions Activity Restrictions/Add. Instructions Additional Instructions/Restrictions: You were evaluated in the emergency department today. Please hop picker the prescriptions at the pharmacy and take them as prescribed. At this time, we do not see any bugs going in and out of your skin. It is possible this could be a delusion. It is also possible you could have an underlying inflammatory skin condition. Please hop picker the prescriptions at the pharmacy and take them as prescribed. Please follow up right away with your primary care provider, Dr. Montoya, as well as with dermatology, Dr. Denny. Clinical Impressions Clinical Impression: Multiple excoriations Instructions Patient Instructions: DI for Itching Print Language Print Language: Tamazight Discharge ED Provider: Valentina Dykes General Adult HPI General Chief complaint: Skin/Abscess/Foreign Body Stated complaint: itchy rash Time Seen by Provider: 11/26/23 11:45 Mode of Arrival: Ambulatory Source of Information: Patient Limitations: No Limitations Description of Symptoms (Recalled from ER Triage Doc. by RN): pt reports to ED with skin issues. pt reports that he has been seen in the [facility] twice for the same issue. he is given medications, they help for a little bit, and then the skin itching and redness comes back. pt reports itching and redness scattered all over body. pt suspects he has skin mites. History of Present Illness HPI narrative: This patient is a 47-year-old male with history of type 2 diabetes, neuropathy, hypertension, COPD presenting to the emergency department for evaluation with concern for bugs under his skin. Patient reports that he has been seen multiple times in urgent treatment center and has been given steroids and antihistamines with no improvement. He states that he sees the bugs under his skin, picks them out with his fingernails, but then they go back into his fingers. He states that he sees them all over his body. He has had steroid tapers with no improvement. He denies drug use, hallucinations, SI, HI. He denies any history of personal or family psychiatric disorder. Related Data Previous Rx's ?Medication ?Instructions ?Recorded diphenhydramine HCl 25 mg capsule 25 mg PO Q6HP PRN Itching #30 caps 10/26/23 prednisone 10 mg tablet 10 mg PO DIRECTED 9 days #21 10/26/23 tabs triamcinolone acetonide 0.1 % 1 applic topical BID PRN itching 10/26/23 topical cream #30 grams hydroxyzine HCl 25 mg tablet 25 mg PO Q8H PRN itching #20 tabs 11/26/23 triamcinolone acetonide 0.1 % 1 applic topical BID #30 grams 11/26/23 topical cream Allergies Allergy/AdvReac Type Severity Reaction Status Date / Time No Known Allergies Allergy Verified 10/13/23 18:15 [facility] Disclaimer: The information contained in this section may have been updated after the patient was seen, as this information can be updated by other users. Medical History COPD (chronic obstructive pulmonary disease) Diabetes mellitus, type 2 Hypertension Neuropathy Nonketotic hyperglycinemia, type II Dehydration New onset type 2 diabetes mellitus DKA (diabetic ketoacidoses) Surgical History History of carpal tunnel repair Social History Smoking Status: Current every day smoker tobacco type: cigarettes packs per day: 1 alcohol intake: never substance use type: former substance user, marijuana, crack/cocaine and hallucinogens current occupational status: unemployed and disabled Travel in the last 8 weeks: None household members: spouse and children housing: house number of children: 1 caffeine: Yes ROS Obtained: Yes All systems reviewed & no additional complaints except as documented Physical Exam General General appearance: alert Comment: Agitated, anxious appearing Head Head exam: atraumatic, normocephalic and other (excoriations to L lower face without surrounding erythema or warmth) Eye Eye exam: Present normal appearance, PERRL and EOMI ENT ENT exam: Present normal exam, normal oropharynx, mucous membranes moist and normal external ear exam Neck Neck exam: Present normal inspection, full ROM and trachea midline; Absent tenderness Chest Chest inspection: Present normal inspection and symmetric chest wall rise; Absent tenderness Respiratory Respiratory exam: Present normal lung sounds bilaterally; Absent respiratory distress, wheezes, stridor or accessory muscle use Cardiovascular Cardiovascular exam: Present regular rate and normal rhythm Abdominal Exam Abdominal exam: Present soft; Absent distention, tenderness or guarding Extremities Exam Extremities exam: Present normal inspection, full ROM and normal capillary refill; Absent tenderness or edema Back Exam Back exam: Present normal inspection and full ROM; Absent tenderness Neurological Exam Neurological exam: Present alert, oriented X3, CN II-XII intact and normal gait; Absent motor sensory deficit Psychiatric Psychiatric exam: Present agitated and anxious Skin Skin exam: Present warm, dry and rash (scattered excoriations to extremities, face of varying healing stages. No obvious bugs, which patient attempts to point out) Medical Decision Making Medical Records Medical records reviewed: Yes I reviewed the patient's medical records. Donell Inquiry Pt receiving controlled substance: No Vital Signs: 11/26/23 11:44 11/26/23 12:02 Temperature 98.1 F Temperature Source Oral Pulse Rate 75 Pulse Rate [Left Radial] 86 Respiratory Rate 15 Blood Pressure 126/92 H Blood Pressure [Right Arm] 152/98 H Blood Pressure Mean [Right Arm] 116 02 Sat by Pulse Oximetry 98 97 Oxygen Delivery Method Room Air Lab Data Lab results reviewed: Yes I reviewed the patient's lab results. Medical Decision Narrative: In summary, this patient is a 47-year-old male presenting to the Emergency Department for evaluation of bugs crawling under his skin. Differential diagnoses considered include but are not limited to eczema, psoriasis, chiggers, scabies, bed bug infestation. Ruling out the most morbid conditions drove assessment. It should be noted patient's history includes hypertension, diabetes, COPD which may or may not be at goal therapy. This complicates all aspects of care by increasing patient's risk for morbidity. I reviewed patient's past medical records and noted previous [facility] evaluations and prescriptions as well as previous evaluation in which it was reported that the patient has a history of substance use in the past. On exam, the patient is very agitated. He is pointing at bugs under his skin which I am not able to visualize. He has multiple scattered excoriations. At this time, I cannot rule out underlying skin condition, as he does have a lot of inflammation and irritation to his skin, but I have high concern for delusional parasitosis based on the nature of his presentation. I tried to verbally de-escalate the patient and explained to him that we will do everything we can to treat his itching and rashes, but that he needs to follow-up outpatient with primary care. He became very agitated and aggressive stating that why would we have a hospital if we cannot take care of all of his needs here. I advised that we will take care of them for now but he needs to follow-up to make sure that everything goes well because he has been dealing with this for a month without good improvement. He Becoming increasingly agitated, pacing around the room stating that this is insane. He denies SI, HI, or AVH. Ultimately, unclear if he has substance-induced delusional parasitosis or psychiatric induced. Given his significant itching and inflammation of his skin, will prescribe triamcinolone cream as well as hydroxyzine. At this time, I feel there likely is more risk than beneift of another steroid taper so close to his recent. He was given prescriptions for triamcinolone and hydroxyzine as well as instructions for close outpatient follow-up. He was discharged with strict return precautions after all questions were answered Critical Care Critical Care Time Critical Care Time: No
[2023-11-26 12:25] VITALS: BP 147/93; PULSE 75; RESP 17; TEMP 36.7; O2SAT 97
== END 2023-11-26 12:28 | disposition home or self-care (01) ==
PROVIDERS: Emergency Provider Emergency Medicine; PCP Internal Medicine
DX: L98.9 Disorder of the skin and subcutaneous tissue, unspecified (principal); L29.9 Pruritus, unspecified; R45.1 Restlessness and agitation; R45.4 Irritability and anger
CPT/HCPCS: 99283

== ENCOUNTER 2023-12-09 15:07 | Emergency (ER) | payer MEDICARE, MEDICAID, SELFPAY ==
[2023-12-09 15:18] VITALS: BP 118/74; PULSE 74; RESP 18; TEMP 36.8; O2SAT 98; BMI 29.9
--- NOTE | 2023-12-09 15:47 | ED_ITS ---
Discharge Plan Disposition Patient Disposition: Home, Self-Care Prescriptions Prescriptions: No Action Lice Killing (permethrin) 1 % liquid 60 ml topical ONCE Qty: 59 1RF Rx Instructions: Use once and 14 days later triamcinolone acetonide 0.1 % cream 1 applic topical BID Qty: 30 0RF hydroxyzine HCl 25 mg tablet 25 mg PO Q8H PRN (Reason: itching) Qty: 60 0RF prednisone 10 mg tablet 10 mg PO DIRECTED 9 Days Qty: 21 0RF Rx Instructions: Take 4 tablets daily for 3 days, then take 2 tablets daily for 3 days, then take 1 tablet daily for 3 days, then stop. diphenhydramine HCl 25 mg capsule 25 mg PO Q6HP PRN (Reason: Itching) Qty: 30 0RF triamcinolone acetonide 0.1 % cream 1 applic topical BID PRN (Reason: itching) Qty: 30 0RF Referrals Follow up/Referrals: Javier Reese APRN [Primary Care Provider] - See instructions Activity Restrictions/Add. Instructions Additional Instructions/Restrictions: At this time it was felt you are safe to be discharged home. If new or worsening symptoms please do not hesitate to return the emergency department. Please refrain from itching as best as able, apply this topical antibiotic 3 times a day for 1 week, it will take a while for the sores to heal. Please follow-up with your skin doctor as discussed. Clinical Impressions Clinical Impression: Skin lesion Instructions Patient Instructions: DI for Skin Abscess Print Language Print Language: Ivorian Discharge ED Provider: Viral Mack General Adult HPI General Chief complaint: Skin/Abscess/Foreign Body Stated complaint: Painful areas all over body Time Seen by Provider: 12/09/23 15:22 Mode of Arrival: Ambulatory Source of Information: Patient Limitations: No Limitations Description of Symptoms (Recalled from ER Triage Doc. by RN): pt reports, I have larva hatching and coming out of my skin...the bugs feel like they are ripping me open. pt describes the pain as feeling like I'm being eaten. pts pain is 10/10. No bugs/larva visualized. pt states this has been ongoing [id number] and it occurs all over his body. pt reports, sometimes when I cry they come out my eyes then go back in. pt has hydroxyzine and muprocin cream that he was previously sent in by this ER. pt states the hydroxyzine helps with healing his skin. pt denies SI/HI. pt states he feels safe at home. pts thoughts are scattered and he can be hard to follow at times. History of Present Illness HPI narrative: Patient is a 47-year-old male who presents emergency department with concern for larva coming out of his skin. Onset was for some time he has been evaluated here in the emergency department by his PCP and is upset that no one is doing anything about it . He has a dermatology appointment next month. When asked if he could provide video of the larva crawling out of his skin he cannot. They come out of all extremities, his eyes, his mouth, all orifices, his back, his neck, his abdomen. No other acute complaints at this time. Related Data Previous Rx's ?Medication ?Instructions ?Recorded diphenhydramine HCl 25 mg capsule 25 mg PO Q6HP PRN Itching #30 caps 10/26/23 prednisone 10 mg tablet 10 mg PO DIRECTED 9 days #21 10/26/23 tabs triamcinolone acetonide 0.1 % 1 applic topical BID PRN itching 10/26/23 topical cream #30 grams hydroxyzine HCl 25 mg tablet 25 mg PO Q8H PRN itching #60 tabs 11/28/23 permethrin 1 % topical liquid 60 ml topical ONCE #59 mL 11/28/23 (Lice Killing (permethrin)) triamcinolone acetonide 0.1 % 1 applic topical BID #30 grams 11/28/23 topical cream Allergies Allergy/AdvReac Type Severity Reaction Status Date / Time No Known Allergies Allergy Verified 12/09/23 15:29 [facility] Disclaimer: The information contained in this section may have been updated after the patient was seen, as this information can be updated by other users. Medical History COPD (chronic obstructive pulmonary disease) Diabetes mellitus, type 2 pt reports diet controlled now r/t weight loss Hypertension Neuropathy Nonketotic hyperglycinemia, type II Dehydration New onset type 2 diabetes mellitus DKA (diabetic ketoacidoses) Surgical History History of carpal tunnel repair Social History Smoking Status: Current every day smoker tobacco type: cigarettes packs per day: 1 alcohol intake: never substance use type: former substance user, marijuana, crack/cocaine and hallucinogens current occupational status: unemployed and disabled Travel in the last 8 weeks: Inside the [place] household members: spouse and children housing: house number of children: 1 caffeine: Yes ROS Obtained: Yes Systems reviewed as appropriate & no additional complaints except as documented Physical Exam General General appearance: alert and in no apparent distress Head Head exam: atraumatic and normocephalic Eye Eye exam: Present PERRL and EOMI ENT ENT exam: Present normal oropharynx and mucous membranes moist Neck Neck exam: Present normal inspection Chest Chest inspection: Present normal inspection and symmetric chest wall rise Respiratory Respiratory exam: Present normal lung sounds bilaterally; Absent respiratory distress Cardiovascular Cardiovascular exam: Present regular rate and normal rhythm Abdominal Exam Abdominal exam: Present soft; Absent tenderness Extremities Exam Extremities exam: Present normal inspection Neurological Exam Neurological exam: Present alert and CN II-XII intact Psychiatric Psychiatric exam: Present normal affect Skin Skin exam: Present warm, dry and other (Scattered sores over the extremities, a bdomen better excoriated, no purulence.) Medical Decision Making Donell Inquiry Pt receiving controlled substance: No Vital Signs: 12/09/23 15:18 Temperature 98.2 F Temperature Source Oral Pulse Rate [Left] 74 Respiratory Rate 18 Blood Pressure [Right Arm] 118/74 Blood Pressure Mean [Right Arm] 88 Blood Pressure Source [Right Arm] Automatic Cuff Blood Pressure Position [Right Arm] Sitting 02 Sat by Pulse Oximetry 98 Oxygen Delivery Method Room Air Orders (Tests/Meds): ED MEDICATIONS Generic Name Dose Route Start Last Admin Trade Name Freq PRN Reason Stop Dose Admin Bacitracin 1 gm 12/09/23 15:46 Bacitracin Zinc Oint 30gm Tube TP 12/09/23 15:47 ONCE ONE Medical Decision Narrative: In summary patient is a 47-year-old male past medical history described above presents emergency department for evaluation of skin sores and complaining of parasites hatching from his body. Patient is hemodynamically stable and nontoxic-appearing upon arrival, afebrile. I do not appreciate any parasites on my exam, specifically there is no oral involvement, no ocular vomiting, although he does have sores [id number] bedside at bedside was conducted, no abscess, no subcutaneous parasites. Patient was given bacitracin and he was attempted to explain that there were no parasites at bedside for which he was very off put by this. Patient was encouraged to follow-up with his operations general agent for continued evaluation will be discharged with bacitracin. Workable labs and imaging was considered but other than ultrasound there is no indication at this time will be deferred. Procedure: Procedure performed was [id number] ultrasound. Procedure performed by Viral Mack. Subcutaneous views of the left upper extremity dorsal forearm, left upper extremity thenar eminence on the hand, left posterior lateral neck were obtained, no subcutaneous fluid collections, no subcutaneous foreign bodies, no subcutaneous movement that would indicate parasites. Images were not saved troponin archive. Patient tolerated procedure well. There were no immediate complications. Critical Care Critical Care Time Critical Care Time: No
[2023-12-09 15:52] VITALS: BP 120/77; PULSE 77; RESP 20; TEMP 36.8; O2SAT 99
[2023-12-09] MEDS: BACITRACIN ZINC OINT 30GM TUBE TP (15:58)
--- OUTSIDE RECORDS SUMMARY | 2023-12-12 12:04 | XMS_ITS | Clinical Summary ---
Author Organization [facility] Address [address] [place] [address] Phone Care Team Providers Care Bookseamer Blindstitch Name Role Phone Didier MINA, Milton Blanco Unavailable [phone] Conditions or Problems No information available. Medications No information available. Medications Administered No information available. Allergies, Adverse Reactions, Alerts No information available. Results No information available. Plan of Care No information available. Procedures No information available. Vital Signs No information available. Immunizations No information available. Advance Directives No information available.
== END 2023-12-09 16:01 | disposition home or self-care (01) ==
PROVIDERS: Emergency Provider Emergency Medicine; PCP Nurse Practitioner Family
DX: L98.9 Disorder of the skin and subcutaneous tissue, unspecified (principal); J44.9 Chronic obstructive pulmonary disease, unspecified; E11.40 Type 2 diabetes mellitus with diabetic neuropathy, unspecified; I10 Essential (primary) hypertension; F17.210 Nicotine dependence, cigarettes, uncomplicated
CPT/HCPCS: 99282

== ENCOUNTER 2024-03-08 11:30 | Emergency (ER) | payer MEDICARE, MEDICAID, SELFPAY ==
[2024-03-08 11:31] VITALS: BP 148/106; PULSE 77; RESP 18; TEMP 36.6; O2SAT 98; BMI 30.7
--- NOTE | 2024-03-08 12:18 | ED_ITS ---
<Statement entered by Collin German DO - 03/10/24 13:00> I reviewed the above and actively participated in the medical decision making. I agree with the assessment and plan. Discharge Plan Prescriptions Prescriptions: No Action Lice Killing (permethrin) 1 % liquid 60 ml topical ONCE Qty: 59 1RF Rx Instructions: Use once and 14 days later triamcinolone acetonide 0.1 % cream 1 applic topical BID Qty: 30 0RF hydroxyzine HCl 25 mg tablet 25 mg PO Q8H PRN (Reason: itching) Qty: 60 0RF prednisone 10 mg tablet 10 mg PO DIRECTED 9 Days Qty: 21 0RF Rx Instructions: Take 4 tablets daily for 3 days, then take 2 tablets daily for 3 days, then take 1 tablet daily for 3 days, then stop. diphenhydramine HCl 25 mg capsule 25 mg PO Q6HP PRN (Reason: Itching) Qty: 30 0RF triamcinolone acetonide 0.1 % cream 1 applic topical BID PRN (Reason: itching) Qty: 30 0RF Referrals Follow up/Referrals: Javier Reese APRN [Primary Care Provider] - See instructions Activity Restrictions/Add. Instructions Additional Instructions/Restrictions: As we discussed use the ointment twice a day small ribbon on the lower lid. Please call today to make an appointment with my eye doctor here in [place] for follow-up. Return to the ER for any worsening signs or symptoms as needed. Clinical Impressions Clinical Impression: Corneal abrasion Qualifiers: Encounter type: initial encounter Laterality: left Qualified Code(s): S05.02XA - Injury of conjunctiva and corneal abrasion without foreign body, left eye, initial encounter Abrasion of conjunctiva, left Qualifiers: Encounter type: initial encounter Qualified Code(s): S05.02XA - Injury of conjunctiva and corneal abrasion without foreign body, left eye, initial encounter Instructions Patient Instructions: DI for Corneal Abrasion Print Language Print Language: Grenadian Discharge ED Provider: Collin German General Adult HPI General Chief complaint: Eye Problems Stated complaint: foreign object in L eye Time Seen by Provider: 03/08/24 12:18 History of Present Illness HPI narrative: Patient presents for a left problem. Patient states he went to bed normally last night however when he woke up he had a pain in his left eye. He denies any trauma or foreign body exposure. He tried to irrigate it at home and it did not help. Its gotten progressively worse to where he is now photophobic. He denies discharge fever chills hemoptysis recent illness cough cold congestion. Related Data Previous Rx's ?Medication ?Instructions ?Recorded diphenhydramine HCl 25 mg capsule 25 mg PO Q6HP PRN Itching #30 caps 10/26/23 prednisone 10 mg tablet 10 mg PO DIRECTED 9 days #21 10/26/23 tabs triamcinolone acetonide 0.1 % 1 applic topical BID PRN itching 10/26/23 topical cream #30 grams hydroxyzine HCl 25 mg tablet 25 mg PO Q8H PRN itching #60 tabs 11/28/23 permethrin 1 % topical liquid 60 ml topical ONCE #59 mL 11/28/23 (Lice Killing (permethrin)) triamcinolone acetonide 0.1 % 1 applic topical BID #30 grams 11/28/23 topical cream Allergies Allergy/AdvReac Type Severity Reaction Status Date / Time No Known Allergies Allergy Verified 12/09/23 15:29 [facility] Disclaimer: The information contained in this section may have been updated after the patient was seen, as this information can be updated by other users. Medical History COPD (chronic obstructive pulmonary disease) Diabetes mellitus, type 2 pt reports diet controlled now r/t weight loss Hypertension Neuropathy Nonketotic hyperglycinemia, type II Dehydration New onset type 2 diabetes mellitus DKA (diabetic ketoacidoses) Surgical History History of carpal tunnel repair Social History Smoking Status: Current every day smoker tobacco type: cigarettes packs per day: 1 alcohol intake: never substance use type: former substance user, marijuana, crack/cocaine and hallucinogens current occupational status: unemployed and disabled household members: spouse and children housing: house number of children: 1 caffeine: Yes Other Medical History Have you received the Flu Vaccine for this season: No Have you received the Pneumonia Vaccine: No ROS Obtained: Yes Systems reviewed as appropriate & no additional complaints except as documented Physical Exam General General appearance: alert Respiratory Respiratory exam: Present normal lung sounds bilaterally Cardiovascular Cardiovascular exam: Present regular rate Neurological Exam Neurological exam: Present alert and oriented X3 Medical Decision Making Medical Records Screening: Per USPSTF and CDC recommendations, given the prevalence of disease in our region, it is our hospital?s policy to screen for HIV and viral Hepatitis for all patients aged 18 and over and those with ongoing risk factors. Donell Inquiry Pt receiving controlled substance: No Vital Signs: 03/08/24 11:31 Temperature 97.9 F Temperature Source Oral Pulse Rate [Radial] 77 Respiratory Rate 18 Blood Pressure [Right Arm] 148/106 H Blood Pressure Mean [Right Arm] 120 Blood Pressure Source [Right Arm] Automatic Cuff Blood Pressure Position [Right Arm] Sitting 02 Sat by Pulse Oximetry 98 Oxygen Delivery Method Room Air Orders (Tests/Meds): ORDERS Category Date Time Status HIV (1&2) Antibody Rapid Stat Lab 03/08/24 12:25 Ordered Hep C Ab with Reflex to RNA Stat Lab 03/08/24 12:25 Ordered Medical Decision Narrative: In summary patient is a 48-year-old male who presents to the emergency department for evaluation of left eye injury. Patient is hemodynamically stable upon arrival, afebrile. Physical exam is remarkable for left conjunctival injection and irritation but no discharge no visible foreign body under normal light. Patient is very photophobic but has no pain with extraocular movements. He has a foreign body sensation when he closes his eyes but cannot tell me where it is.. Differential diagnosis includes corneal abrasion versus corneal foreign body [place]. Initial workup will be conducted with exam under topical anesthesia and UV light. Initial interventions include topical anesthesia. Initial workup performed by me shows that patient has a conjunctival abrasion along with a corneal abrasion at approximately 8:00. There is some fluorescein pooling in the ciliary body but no visible foreign body. Given this patient given erythromycin ointment first dose given here and referral to my eye doctor for ongoing follow-up and management and is appropriate for discharge home with strict return precautions.. Critical Care Critical Care Time Critical Care Time: No
[2024-03-08 12:45] VITALS: BP 153/100; PULSE 71; RESP 18; TEMP 36.6; O2SAT 98
--- OUTSIDE RECORDS SUMMARY | 2024-03-08 13:10 | XMS_ITS | Encounter Summary ---
Author Organization Healthcare Address [address] [place] [address] Care Team Providers Care Travel Accommodations Rater Name Role Phone Pcp, No Primary Care Provider Unavailabl e Reason for Visit * Reason Comments Parasites Encounter Details Date Type Department Care Team ([facility] st Contact Info) Description 11/28/2023 8:48 PM EDT - 11/28/2023 10:08 PM EDT Emergency [facility] Emergency Department [address] [place] [address] Picking own skin (Primary Dx); Hypokalemia; Elevated blood pressure reading without diagnosis of hypertension Discharge Disposition: Home or Self Care Social History Tobacco Use Types Packs/Day Years Used Date Smoking Tobacco: Never Assessed Sex and Gender Information Value Date Recorded Sex Assigned at Not on file Legal Sex Male 6:56 PM EDT Gender Identity Not on file Sexual Orientation Not on file documented as of this encounter Last Filed Vital Signs Vital Sign Reading Time Taken Comments Blood Pressure 150/101 11/28/2023 9:49 PM EDT Pulse 76 11/28/2023 9:49 PM EDT Temperature 36.4 ??C (97.6 ??F) 11/28/2023 9:49 PM ED T Respiratory Rate 22 11/28/2023 9:49 PM EDT Oxygen Saturation 97% 11/28/2023 9:49 PM EDT Inhaled Oxygen Concentration - - Weight 85 kg (187 lb 6.3 oz) 11/28/2023 6:34 PM EDT Height - - Body Mass Index - - documented in this encounter Discharge Instructions * Discharge Instructions* Lam Aguilar APRN - 11/28/2023 9:56 PM EDT Please refrain from further scratching and itching of your wounds. Rest and recover as able. Please increase your water intake. [place] use of warm and/or cold compresses. Primary pain control should be accomplished with OTC Tylenol and or ibuprofen. You may use theprescription Vistaril for symptomatic relief of itching. Please use the antibiotic ointment on yourwounds to help them heal. It is important for you to follow-up with your established Primary Care provider for re-evaluation and recheck of your wounds and your elevated blood pressure. You may also follow-up within the system for Primary Care if you so choose. Return for any acute/severe worsening. Of course, you may return to the emergency department any time for new or concerning symptoms. We are always open and available to you. documented in this encounter Medications at Time of Discharge hydrOXYzine pamoate (Vistaril) 25 MG capsule Take 1 capsule (25 mg) by mouth every 8 (eight) hours if needed for itching for up to 12 doses. 12 capsule 11/28/2023 mupirocin (Bactroban) 2 % ointment Apply to affected area(s) three times daily. 30 g 2 11/28/2023 documented as of this encounter Miscellaneous Notes * ED Provider Notes - Lam Aguilar APRN - 11/28/2023 6:12 PM EDT Images from the original note were not included. - HPI Chief Complaint Patient presents with Parasites PIT Note Magdi Pan is a 47 y.o. male who presents to ED with parasites. Pt reports that he has parasitesin his skin, gums, eyeballs, and eyelids. Pt reports that he has seen them. Pt reports that he was given some pills and a cream, but they did not help with his parasites. Pt reports that he first noticed the parasites 1.5 months ago. Pt reports that the parasites are all over his skin, including onhis genitals. Pt reports that he defecates and urinates the parasites as well. Pt denies having anymedical problems. Pt reports that he believes that his blood pressure is high today as he is very worried. Patient denies fever, chills, cough, chest pain, shortness of breath, nausea, vomiting, and diarrhea. Patient's HPI was personally reviewed and confirmed with the patient. This patient was further seenand evaluated in the ED in conjunction with Dr. Verdugo. History provided by: Patient resource room special education teacher used: No Patient History History reviewed. No pertinent past medical history. History reviewed. No pertinent surgical history. No family history on file. Allergies: No Known Allergies Physical Exam ED Triage Vitals [11/28/23 1834] Temp Heart Rate Resp BP 36.8 ??C (98.2 ??F) 77 18 (!) 172/97 SpO2 Temp Source Heart Rate Source Patient Position 96 % Oral Monitor Sitting BP Location FiO2 (%) Left arm -- Physical Exam Vitals and nursing note reviewed. Constitutional: General: He is not in acute distress. Appearance: Normal appearance. He is well-developed. HENT: Head: Normocephalic and atraumatic. Comments: No facial swelling Right Ear: External ear normal. Left Ear: External ear normal. Nose: Nose normal. Mouth/Throat: Mouth: Mucous membranes are moist. Pharynx: Oropharynx is clear. Eyes: Extraocular Movements: Extraocular movements intact. Comments: Bilateral pupils are at 4-5 mm with slow reactivity Cardiovascular: Rate and Rhythm: Normal rate. Pulmonary: Effort: Pulmonary effort is normal. No respiratory distress. Breath sounds: Normal air entry. Comments: Speaking full sentences. Symmetric chest rise Abdominal: General: There is no distension. Musculoskeletal: General: No deformity. Normal range of motion. Cervical back: Normal range of motion. Comments: Atraumatic, moves all extremities spontaneously Skin: General: Skin is warm and dry. Findings: Lesion present. Comments: Superficial skin picking lesions noted about his extremities and torso. Neurological: Mental Status: He is alert. Mental status is at baseline. GCS: GCS eye subscore is 4. GCS verbal subscore is 5. GCS motor subscore is 6. Sensory: Sensation is intact. Motor: Motor function is intact. Coordination: Coordination is intact. Gait: Gait is intact. Comments: Awake Psychiatric: Attention and Perception: He is inattentive. Mood and Affect: Affect is labile. Speech: Speech is rapid and pressured. Behavior: Behavior normal. Behavior is cooperative. Judgment: Judgment is impulsive. No data recorded ED Course & MDM PIT Note Date/Time: 11/28/2023/8:32 PM Entered by Arnaldo Chappell, acting as scribe for Dr. Chris Verdugo Scribe Attestation: This note was dictated to me, Arnaldo Chappell, acting as a scribe for Dr. Chris Verdugo Attending Attestation: The documentation was recorded by Arnaldo Chappell acting as scribe in my presence at the time of the encounter and accurately reflects the service I personally performed. - This patient was seen and evaluated in this ED in conjunction with Dr. Verdugo. Differential can include, but is not limited to skin picking lesions, cellulitis, abrasions, parasitosis, delusional parasitosis. The patient's overall exam was benign with the exception of his hyperactivity and general inattentiveness. He was nontoxic appearing. His wounds had no active drainage or overt signs of infection. Patient adamantly denied any drugs or alcohol. He has had no fevers or chills. Complete laboratory workup as below was ordered reviewed by me. Hishypokalemia was supplemented. I did add a UA and UDS for further evaluation, but the patient declined collection of this. He requested medications ( a pill) for itching as well as a cream to prevent infection. He declined any other issues or care. He was otherwise stable and eligible for discharge. I did send a prescription for Vistaril as well as Bactroban ointment to the patient's pharmacy of choice. He was given recommendations for follow-up care as well as return precautions. Of course, the patient may return to the emergency department any time for new or concerning symptoms. The patient verbalized understanding and agreement with this plan at this time. Assessment: Skin picking lesions Hypokalemia Elevated blood pressure ED Medication Administration from 11/28/2023 1812 to 11/29/2023 0256 Date/Time Order Dose Route Action 11/28/2023 2155 EDT potassium chloride CR (Klor-Con) ER tablet 40 mEq 40 mEq Oral Given All Other Orders Ordered Status Ordering Provider 11/28/236 STAT Canceled LAM AGUILAR 11/28/232147 STAT Canceled ISABELLE, LAM P 11/28/232147 PROCEDURE ONCE Canceled ISABELLE, LAM P 11/28/232147 PROCEDURE ONCE Canceled ISABELLEDRULAM P 11/28/232039 Hepatitis C Antibody - ED Once Final result CHRIS VERDUGO Vicente 11/28/232039 ED Protocol - HIV 1/2 Antibody/Antigen Screen Once Final result CHRIS VERDUGO 11/28/232040 ED HIV 1/2 Antibody/Antigen Screen w/Reflex to HIV 1/2 Differentiation PROCEDURE ONCE Final result VERDUGOCHRIS Vicente 11/28/232039 CBC w/diff STAT Final result CHRIS VERDUGO 11/28/232039 CMP STAT Final result CHRIS VERDUGO Clinical Impressions as of 11/29/23 0256 Picking own skin Hypokalemia Elevated blood pressure reading without diagnosis of hypertension Social Determinates of Health Risks (including Economic Stability, Education and level of understanding, Healthcare access and quality and concerning social factors): Poor health literacy Ultimately, this patient was Was discharged Home (Discharge) The primary encounter diagnosis was Picking own skin. Diagnoses of Hypokalemia and Elevated blood pressure reading without diagnosis of hypertension were also pertinent to this visit. . Patient was counseled on the diagnoses. Discharge medications if any are listed below. Listed medications are thought be either curative for listed diagnoses or will help control ongoing symptoms. Patient is requested to follow up with Patient's Primary Care Provider in order to obtain routine follow-up. Instructions on follow up as well as precautions to return to the ER provided verbally by the EM provider, as well as written in patients discharge education packet. Specific instructions provided are as follows: Discharge Instructions Please refrain from further scratching and itching of your wounds. Rest and recover as able. Please increase your water intake. [place] use of warm and/or cold compresses. Primary pain control should be accomplished with OTC Tylenol and or ibuprofen. You may use theprescription Vistaril for symptomatic relief of itching. Please use the antibiotic ointment on yourwounds to help them heal. It is important for you to follow-up with your established Primary Care provider for re-evaluation and recheck of your wounds and your elevated blood pressure. You may also follow-up within the system for Primary Care if you so choose. Return for any acute/severe worsening. Of course, you may return to the emergency department any time for new or concerning symptoms. We are always open and available to you. Disposition Discharge AVS (Printed 11/28/2023) Follow-Ups: Follow up with [facility] ED Prescriptions Medication Sig Dispense Start Date End Date Auth. Provider hydrOXYzine pamoate (Vistaril) 25 MG capsule Take 1 capsule (25 mg) by mouth every 8 (eight) hours if needed for itching for up to 12 doses. 12 capsule 11/28/2023 -- Lam Aguilar APRN mupirocin (Bactroban) 2 % ointment Apply to affected area(s) three times daily. 30 g 11/28/2023 -- Lam Aguilar APRN Discharge Instructions Please refrain from further scratching and itching of your wounds. Rest and recover as able. Please increase your water intake. [place] use of warm and/or cold compresses. Primary pain control should be accomplished with OTC Tylenol and or ibuprofen. You may use theprescription Vistaril for symptomatic relief of itching. Please use the antibiotic ointment on yourwounds to help them heal. It is important for you to follow-up with your established Primary Care provider for re-evaluation and recheck of your wounds and your elevated blood pressure. You may also follow-up within the system for Primary Care if you so choose. Return for any acute/severe worsening. Of course, you may return to the emergency department any time for new or concerning symptoms. We are always open and available to you. Disposition Discharge AVS (Printed 11/28/2023) Follow-Ups: Follow up with [facility] ([facility]) - Lam Aguilar APRN 11/29/23 0256 Cosigned by Chris Verdugo MD at 12/01/2023 10:23 AM EDT Associated attestation - Chris Verdugo MD - 12/01/2023 10:23 AM EDT I attest to being involved in providing substantive part of the medical decision making in patient care. * ED Triage Notes - Jovana Hills, RN - 11/28/2023 6:12 PM EDT Pt reports parasites all over my body x 1 month documented in this encounter Plan of Treatment Not on file documented as of this encounter Procedures Procedure Name Priority Date/Time Associated Diagnosis Comments ED HIV 1/2 ANTIBODY/ANTIGEN SCREEN WITH REFLEX TO HIV I/II DIFFERENTIATION STAT 11/28/2023 8:46 PM EDT ED PROTOCOL HIV 1/2 ANTIBODY/ANTIGEN SCREEN W/REFLEX TO HIV 1/2 ANTIBODY DIFFERENTIATION STAT 11/28/2023 8:46 PM EDT HEPATITIS C ANTIBODY - ED W/REFLEX TO HCV QUANT PCR STAT 11/28/2023 8:46 PM EDT CBC WITH AUTO DIFFERENTIAL STAT 11/28/2023 8:46 PM EDT COMPREHENSIVE METABOLIC PANEL, PLASMA STAT 11/28/2023 8:46 PM EDT documented in this encounter Results * ED HIV 1/2 Antibody/Antigen Screen w/Reflex to HIV 1/2 Differentiation (11/28/2023 8:46 PM EDT) HIV 1 & 2 Antibody/Antigen Screen Non Reactive Non Reactive 11/28/2023 10:12 PM EDT [facility] Comment:Screening for HIV 1 & 2 antibodies, and P24 antigen is NONREACTIVE. No confirmatory testing is required. Blood Venous blood specimen / Unknown Venipuncture / Unknown 11/28/2023 8:46 PM EDT 11/28/2023 9:09 PM EDT us Chris Verdugo MD LAB BLOOD ORDERABLES Final Res ult [facility] [address] [place] [address] * Hepatitis C Antibody - ED (11/28/2023 8:46 PM EDT) Pathologist [facility] Hepatitis C Antibody Negative Negative 11/28/2023 10:21 PM EDT [facility] Blood Venous blood specimen / Unknown Venipuncture / Unknown 11/28/2023 8:46 PM EDT 11/28/2023 9:10 PM EDT Chris Verdugo MD LAB BLOOD ORDERABLES Final Res ult Performing Organization Address City/[facility]/ZIP Co de Phone Number [facility] [address] [place] [address] * (ABNORMAL) CMP (11/28/2023 8:46 PM EDT) [facility] Glucose, Plasma 92 74 - 99 mg/dL 11/28/2023 9:20 PM EDT [facility] BUN, Plasma 9 7 - 21 mg/dL 11/28/2023 9:20 PM EDT [facility] Creatinine, Plasma 0.98 0.70 - 1.20 mg/dL 11/28/2023 9:20 PM EDT [facility] BUN/Creatinine Ratio 9 11/28/2023 9:20 PM EDT [facility] Sodium, Plasma 140 136 - 145 mmol/L 11/28/2023 9:20 PM EDT [facility] Potassium, Plasma 3.1(L) 3.7 - 4.8 mmol/L 11/28/2023 9:20 PM EDT [facility] Chloride, Plasma 102 97 - 107 mmol/L 11/28/2023 9:20 PM EDT [facility] CO2, Plasma 27 22 - 29 mmol/L 11/28/2023 9:20 PM EDT [facility] Anion Gap 11 6 - 16 mmol/L 11/28/2023 9:20 PM EDT [facility] Total Calcium, Plasma 10.0 8.9 - 10.2 mg/dL 11/28/2023 9:20 PM EDT [facility] Total Protein 7.9 6.3 - 7.9 g/dL 11/28/2023 9:20 PM EDT [facility] Albumin, Plasma 4.3 3.5 - 5.2 g/dL 11/28/2023 9:20 PM EDT [facility] AST, Plasma 27 10 - 50 U/L 11/28/2023 9:20 PM EDT [facility] ALT, Plasma 25 10 - 50 U/L 11/28/2023 9:20 PM EDT [facility] Alkaline Phosphatase, Plasma 137(H) 40 - 115 U/L 11/28/2023 9:20 PM EDT [facility] Total Bilirubin, Plasma 0.3 0.2 - 1.1 mg/dL 11/28/2023 9:20 PM EDT [facility] eGFRcr 94.5 mL/min/1.7 3m*2 11/28/2023 9:20 PM EDT [facility] Comment:Reported eGFRcr in m L/min/1.73m2 is based the CKD-EPI 2020 equation that does not use a race coefficient. Blood Venous blood specimen / Unknown Venipuncture / Unknown 11/28/2023 8:46 PM EDT 11/28/2023 8:59 PM EDT us Chris Verdugo MD LAB BLOOD ORDERABLES Final Res ult [facility] [address] [place] [address] * (ABNORMAL) CBC w/diff (11/28/2023 8:46 PM EDT) WBC Count 10.05 3.70 - 10.30 10*3/uL LAB HEMATOLOGY METHOD 11/28/2023 9:03 PM EDT [facility] RBC Count 4.99 4.60 - 6.10 10*6/uL LAB HEMATOLOGY METHOD 11/28/2023 9:03 PM EDT [facility] HGB 16.5 13.7 - 17.5 g/dL LAB HEMATOLOGY METHOD 11/28/2023 9:03 PM EDT [facility] HCT 46.3 40.0 - 51.0 % LAB HEMATOLOGY METHOD 11/28/2023 9:03 PM EDT [facility] Platelet Count 236 155 - 369 10*3/uL LAB HEMATOLOGY METHOD 11/28/2023 9:03 PM EDT [facility] MCV 93 79 - 98 fL LAB HEMATOLOGY METHOD 11/28/2023 9:03 PM EDT [facility] MCH 33.1(H) 26.0 - 32.0 pg LAB HEMATOLOGY METHOD 11/28/2023 9:03 PM EDT [facility] MCHC 35.6(H) 30.7 - 35.5 g/dL LAB HEMATOLOGY METHOD 11/28/2023 9:03 PM EDT [facility] RDW 12.5 11.5 - 14.5 % LAB HEMATOLOGY METHOD 11/28/2023 9:03 PM EDT [facility] MPV 9.9 8.8 - 12.5 fL LAB HEMATOLOGY METHOD 11/28/2023 9:03 PM EDT [facility] nRBC 0.0 <=0.0 per 100 WBCs LAB HEMATOLOGY METHOD 11/28/2023 9:03 PM EDT [facility] Differential Type Automated LAB HEMATOLOGY METHOD 11/28/2023 9:03 PM EDT [facility] Neutrophils % 62.0 % LAB HEMATOLOGY METHOD 11/28/2023 9:03 PM EDT [facility] Lymphocytes % 27.0 % LAB HEMATOLOGY METHOD 11/28/2023 9:03 PM EDT [facility] Monocytes % 8.0 % LAB HEMATOLOGY METHOD 11/28/2023 9:03 PM EDT [facility] Eosinophils % 1.0 % LAB HEMATOLOGY METHOD 11/28/2023 9:03 PM EDT [facility] Basophils % 1.0 % LAB HEMATOLOGY METHOD 11/28/2023 9:03 PM EDT [facility] Immature Granulocytes % 1.0 % LAB HEMATOLOGY METHOD 11/28/2023 9:03 PM EDT [facility] Neutrophils Absolute 6.31(H) 1.60 - 6.10 10*3/uL LAB HEMATOLOGY METHOD 11/28/2023 9:03 PM EDT [facility] Lymphocytes Absolute 2.67 1.20 - 3.90 10*3/uL LAB HEMATOLOGY METHOD 11/28/2023 9:03 PM EDT [facility] Monocytes Absolute 0.83 0.30 - 0.90 10*3/uL LAB HEMATOLOGY METHOD 11/28/2023 9:03 PM EDT [facility] Eosinophils Absolute 0.12 0.00 - 0.50 10*3/uL LAB HEMATOLOGY METHOD 11/28/2023 9:03 PM EDT [facility] Basophils Absolute 0.07 0.00 - 0.10 10*3/uL LAB HEMATOLOGY METHOD 11/28/2023 9:03 PM EDT [facility] Immature Granulocytes Absolute 0.05 0.00 - 0.06 10*3/uL LAB HEMATOLOGY METHOD 11/28/2023 9:03 PM EDT [facility] Blood Venous blood specimen / Unknown Venipuncture / Unknown 11/28/2023 8:46 PM EDT 11/28/2023 8:59 PM EDT Narrative [facility] - 11/28/2023 9:03 PM EDT Therapeutic decision making should be based on absolute values, rather than percentages. us Chris Verdugo MD LAB BLOOD ORDERABLES Final Res ult [facility] [address] [place] [address] documented in this encounter Visit Diagnoses Diagnosis Picking own skin- Primary Hypokalemia Hypopotassemia Elevated blood pressure reading without diagnosis of hypertension documented in this encounter Administered Medications Inactive Administered Medications - up to 3 most recent administrations Medication Order MAR Action Action Date Dose Rate Site potassium chloride CR (Klor-Con) ER tablet 40 mEq 40 mEq, Oral, Once, 1 dose, On Mon11/28/23 at 2130, STAT Given 11/28/2023 9:55 PM EDT 40 mEq documented in this encounter Active and Recently Administered Medications Times are shown in EDT. Scheduled Medication Order 11/26/2023 11/27/2023 11/28/2023 potassium chloride CR (Klor-Con) ER tablet 40 mEq (COMPLETED) 40 mEq, Oral, Once, 1 dose, On Mon11/28/23 at 2130, STAT 2155 (Given - Provid er: Jonelle Siu RN) documented in this encounter Care Teams Travel Accommodations Rater Relationship Specialty Start Date End Date Pcp, No [address] [place] [address] PCP - General Family Medicine 11/28/23 documented as of this encounter
--- OUTSIDE RECORDS SUMMARY | 2024-03-08 13:10 | XMS_ITS | Clinical Summary ---
Author Organization [facility] Address [address] [place] [address] Care Team Providers Care Display Decorator Name Role Phone Pcp, No Primary Care Provider Unavailabl e Allergies No known active allergies Medications hydrOXYzine pamoate (Vistaril) 25 MG capsule Take 1 capsule (25 mg) by mouth every 8 (eight) hours if needed for itching for up to 12 doses. 12 capsule 11/28/2023 Active mupirocin (Bactroban) 2 % ointment Apply to affected area(s) three times daily. 30 g 2 11/28/2023 Active Active Problems No known active problems Social History Tobacco Use Types Packs/Day Years Used Date Smoking Tobacco: Never Assessed Sex and Gender Information Value Date Recorded Sex Assigned at Not on file Legal Sex Male 6:56 PM EDT Gender Identity Not on file Sexual Orientation Not on file Last Filed Vital Signs Vital Sign Reading [...] - - Body Mass Index - - Plan of Treatment Not on file Insurance [place] [employer] Care Teams Display Decorator Relationship Specialty Start Date [place] [address] PCP - General Family Medicine 11/28/23
--- OUTSIDE RECORDS SUMMARY | 2024-03-08 13:10 | XMS_ITS | Encounter Summary ---
Author Organization [facility] Address [address] [place] [address] Care Team Providers Care Blasting Gang Miner Name Role Phone Pcp, No Primary Care Provider Unavailabl e Encounter Details Date Type Department Care Team (Latest Contact Info) Description 11/28/2023 Travel Social History Tobacco Use Types Packs/Day Years Used Date Smoking Tobacco: Never Assessed Sex and Gender Information Value Date Recorded Sex Assigned at Not on file Legal Sex Male 6:56 PM EDT Gender Identity Not on file Sexual Orientation Not on file documented as of this encounter Plan of Treatment Not on file documented as of this encounter Visit Diagnoses Not on filedocumented in this encounter Care Teams Blasting [employer] Miner Relationship Specialty Start Date End Date Pcp, No [address] [place] [address] PCP - General Family Medicine 11/28/23 documented as of this encounter
== END 2024-03-08 12:52 | disposition home or self-care (01) ==
PROVIDERS: Emergency Provider Student in an Organized Health Care Education/Training Program; PCP Nurse Practitioner Family
DX: S05.02XA Injury of conjunctiva and corneal abrasion without foreign body, left eye, initial encounter (principal); H57.12 Ocular pain, left eye; H53.149 Visual discomfort, unspecified
CPT/HCPCS: 99282

== ENCOUNTER 2024-09-15 23:24 | Emergency (ER) | payer MEDICARE, MEDICAID, SELFPAY ==
[2024-09-16 00:12] VITALS: BP 0/0; PULSE 0; RESP 20; TEMP -17.7; TEMP 0; O2SAT 0; BMI 29.8
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
--- OUTSIDE RECORDS SUMMARY | 2024-09-16 00:26 | XMS_ITS | Clinical Summary ---
Author Organization [facility] Address [address] [id number] Care Team Providers Care Patient Financial Specialist Name Role Phone Pcp, No Primary Care [...] 76 11/28/2023 9:49 PM EDT Temperature 36.4 C (97.6 F) 11/28/2023 9:49 PM EDT Respiratory Rate 22 11/28/2023 9:49 PM EDT Oxygen Saturation 97% 11/28/2023 9:49 PM EDT Inhaled Oxygen Concentration - - Weight 85 kg (187 lb 6.3 oz) 11/28/2023 6:34 PM EDT Height - - Body Mass Index - - Plan of Treatment Not on file Insurance MEDICAID-[place] [employer] MEDICARE Care Teams Patient Financial Specialist Relationship Specialty Start Date End Date Pcp, Lynn [address] [place] [address] PCP - General Family Medicine 11/28/23
--- OUTSIDE RECORDS SUMMARY | 2024-09-16 00:26 | XMS_ITS | Clinical Summary ---
Author Organization [facility] Address [address] [place] [address] Phone Care Team Providers Care Barber Apprentice Name Role Phone Didier MINA, Milton Blanco Unavailable [phone] Conditions or Problems No information available. Medications No information available. Medications Administered No information available. Allergies, Adverse Reactions, Alerts No information available. Results No information available. Plan of Care No information available. Procedures No information available. Vital Signs No information available. Immunizations No information available. Advance Directives No information available.
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
[2024-09-16] MEDS: EPINEPHrine 0.1 MG/ML 10ML SYRINGE (CRASH CART) 1 MG IV (01:10)
--- NOTE | 2024-09-16 01:10 | PC.NURSE ---
Called MANUEL. Ref #[id number]
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
[2024-09-16 03:05] VITALS: BP 0/0; PULSE 0; RESP 0; TEMP -17.7; TEMP 0
--- NOTE | 2024-09-16 03:05 | PC.NURSE ---
Emergent blood 2337- Product unit number: [id number] Start time: 09/16/20242336 Stop time: NA Volume infused: Approx 200ml Vitals: NA, no vital signs could be obtained as patient was actively coding Emergent Blood 2339- Product Unit Number: [id number] Start time: 2338 Stop time: NA Volume infused: Approx 200ml Vitals: NA, not vital signs could be obtained as patient was actively coding
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
== END 2024-09-16 03:27 | disposition expired ==
PROVIDERS: Emergency Provider Emergency Medicine
DX: S21.131A Puncture wound without foreign body of right front wall of thorax without penetration into thoracic cavity, initial encounter (principal); I46.8 Cardiac arrest due to other underlying condition; R57.1 Hypovolemic shock; X95.9XXA Assault by unspecified firearm discharge, initial encounter
CPT/HCPCS: 31500; 32551; 36430; 86850; 92950; 96374; 99291; C1751; J0171; P9016